=== PATIENT | female | born 1995 | race Two or more races ===

== ENCOUNTER 2024-09-24 10:30 | Outpatient (AMB) | payer MEDICAID, SELFPAY ==
--- NOTE | 2024-09-24 10:30 | AMB.OBINITIA ---
Vital Signs 09/24/24 10:39 Height 1.63 m Height Method Stated Weight 76.884 kg Weight Measurement Method Standing Scale BMI 29.0 BP 103/65 Blood Pressure Source Automatic Cuff Blood Pressure Location Left Upper Arm Position Sitting Respiration 16 Pulse 101 H Pulse Source Monitor Temp 97.2 F Temp Source Oral Pulse Oximetry (%) 99 Oxygen Delivery Method Room Air Allergies/Home Meds Allergies & Medications Allergies ibuprofen Allergy (Intermediate, Verified 09/24/24 10:41) Swelling of Lip/Tongue/Throat Medication Reconciliation Vitamin * 1 tab PO QDAY #0 tabs 04/03/14 [History Confirmed 09/24/24] Intake Visit Data Collection New Patient or Established: New Patient not seen in past 3 years at [facility] (considered New) Reason for Visit:: OB Check Seen by Clinical Staff ONLY (RN/MA): No Blind Cleaner Required: No Do You Feel Safe at Home: Yes Authorities Contacted: N/A PCP or OBGYN visit in last 3 months: No Hx Now: Yes Are you currently on any form of Control: No Pain Present Currently: No Pain Scale Used: Yousif-Weiner/Numerical Pain scale:: 0 Smoking Status Smoking Status: Never smoker Questionnaires Covid-19 Vaccine Questionnaire Has patient been vacinated for Covid-19 Have you been vacinated for Covid-19: Yes PHQ-9 PHQ-2 Over the last 2 weeks, how often have you been bothered by any of the following problems? 1. Little interest or pleasure in doing things: not at all 2. Feeling down, depressed, or hopeless: not at all Total score: 0 PHQ-9 3. Trouble falling or staying asleep, or sleeping too much: Not at all 4. Feeling tired or having little energy: Not at all 5. Poor appetite or overeating: Not at all 6. Feeling bad about yourself - or that you are a failure or have let yourself or your family down: Not at all 7. Trouble concentrating on things, such as reading the newspaper or watching television: Not at all 8. Moving or speaking so slowly that other people could have noticed? - Or the opposite - being so fidgety or restless that you have been moving around a lot more than usual: not at all 9. Thoughts that you would be better off or of hurting yourself in some way: Not at all Total score: 0 If you checked off any problems, how difficult have these problems made it for you to do your work, take care of things at home, or get along with other people?: not difficult at all Source: Developed by Drs. Eddie Hansen, Anai Li, Bob Gomez and colleagues, with an educational yunior from [employer]. Depression screen completed yes Social History Living Situation History Marital Status: Single Lives With: Family Housing: House Tobacco History Smoking Status: Never smoker Second Hand Smoke Exposure: No Alcohol History Alcohol Intake: Never Domestic Abuse History Do You Feel Safe at Home: Yes Past Medical History Past Medical History Have you ever been diagnosed with any of the following: Cardiology Problems Congestive Heart Failure: No Respiratory Problems Chronic Obstructive Pulmonary Disease (COPD): No Genital/Urinary Problems Renal Disease: No Reproductive Problems Previous Pregnancies: Yes Endocrine Problems Diabetes Mellitus Type 1: No Diabetes Mellitus Type 2: No Other Problems Hospitalization: Yes (previous ) Anesthesia Reactions: No Clostridium Difficile: No Cancer: No History of Present Illness HPI Narrative The patient presents for her first visit. Her last menstrual period was on May 15. She reports having had an initial test and seeing a health educator once. The patient has had an informal ultrasound outside of the medical setting. She denies any C-sections and reports a history of vaginal delivery. The patient mentions experiencing gestational diabetes during her second . She reports experiencing nausea and vomiting, which is now improving. The patient also complains of allergies during this time of year, for which she typically uses cetirizine. No CTX/LOF/VB, reports good FM+ OB Initial Visit Menstrual History Menstrual reliability: definite Flow: normal Menstrual regularity: regular Monthly: Yes Age at menarche: 10 On control pills at conception: No Date of positive home test: 06/14/24 OB History : 3 Para: 2 Hx # Pregnancies: 0 Hx Total # of Abortions (Spontaneous & Elective): 0 # of Living Children: 2 Delivery History 1st : Child's name: ENIO date: 01/25/21 sex: female Delivery type: vaginal History of depression before or after : No 2nd : Child's name: SEBASTION sex: male Delivery type: vaginal History of depression before or after : No Infection History & Risk Evaluation History of STDs: none HIV risk evaluation: low risk Hepatitis B risk evaluation: low risk Patient or partner has history of Genital Herpes: No Varicella/chicken pox status: immunized Genetic Screening & History Genetic Screening/Teratology Counseling - Includes patient, baby's father, or anyone in either family with: 1. Patient's age 35 years or older as of estimated date of delivery: No 2. Thalassemia (Upper Sorbian, Romansh, Mediterranean, or Background); MCV less than 80: No 3. Neural Tube Defect (Meningomyelocele, Spina Bifida, or Anencephaly): No 4. Congenital Heart Defect: No 5. Down Syndrome: No 6. Kamar-Sachs (Ashkenazi Mandaen, Cajun, Citizen Of [place]): No 7. Benigno Disease (Ashkenazi Mandaen): No 8. Familial Dysautonomia (Ashkenazi Mandaen): No 9. Sickle Cell Disease or Trait (): No 10. Hemophilia or other blood disorders: No 11. Muscular Dystrophy: No 12. Cystic Fibrosis: No 13. Dewey's Chorea: No 14. Mental Retardation/Autism: No 15. Other inherited genetic or chromosomal disorder: No 16. Maternal Metabolic Disorder (EG,TYPE 1 Diabetes, PKU): No 17. Patient or baby's father had a child with defects not listed above: No 18. Recurrent loss or a stillbirth: No 19. Medications (including supplements, vitamins, herbs or otc drugs)/illicit/recreational drugs/alcohol since last menstrual period: No 20. Any other: No Infection History 1. Live with someone with TB or exposed to TB: No 2. Rash or viral illness since last menstrual period: No 3. Hepatitis B,C: No Other (see comments) Source: [employer] [place] [employer] Review of Systems Review of Systems Systems Reviewed: All systems reviewed, normal except as documented Exam General Limitations: no limitations General Appearance: alert, in no apparent distress, comfortable, cooperative, healthy appearing, well developed and well groomed Head Head exam: atraumatic, normocephalic and normal inspection Neck Neck exam: Present normal inspection, full ROM and trachea midline Chest Chest inspection: Present normal inspection and symmetric chest wall rise Abdominal Abdominal exam: Present soft and normal bowel sounds Extremities Extremities exam: Present normal inspection and full ROM Back Back exam: Present normal inspection and full ROM Psych Psychiatric exam: Present normal affect and normal mood Skin Skin exam: Present warm, dry, intact and normal color Assessment & Plan Diagnosis / Problem List (1) Supervision of high risk , unspecified, second trimester: Status: Acute Plan: Patient is a at 18 weeks 2 days gestation based on ultrasound measurements. Last menstrual period was May 15. Patient has a history of gestational diabetes in her previous . Initial labs have been ordered. Patient reports improvement in nausea and vomiting symptoms. - Genetic testing for Down syndrome screening (with gender results hidden if desired) - Referral to [facility] for second-trimester ultrasound between 20-24 weeks - Follow-up appointment scheduled Allergies Patient reports experiencing allergies during . - Recommended [id number] non-drowsy antihistamines (loratadine or cetirizine) (2) Ventral hernia without obstruction or gangrene: Status: Acute Plan: Small Hernia Patient has a small hernia, likely umbilical, that becomes more prominent during due to uterine expansion. It is expected to resolve post-. - Post- ultrasound of hernia area - Consult with Dr. Rolon after delivery Additional Assessment Pt Education Educated the patient on labor signs, including regular contractions, lower back pain, and changes in vaginal discharge. Advised avoiding heavy lifting and getting adequate rest. Instructed to contact the office immediately if any signs occur. Discussed the importance of a balanced diet rich in folic acid, iron, and calcium, and provided a list of recommended and to-avoid foods. Emphasized avoiding high-sugar foods to reduce gestational diabetes risk. Encouraged hydration and frequent, small meals for energy. Additional Plan Follow Up: 2 Weeks Office Procedures OB Clinic LOC & Office Proc's Nursing/Assessment Patient Status: Initial/New Patient OB Clinic Nursing Assessment: BP Monitoring, Medication Reconciliation, Update PMH in EMR and Vital Signs OB Clinic Coordination of Care: Consent,records obtained, informed consent, Education Simp Pt/Fam, Lab and Imaging orders and Staff clarify orders New Patient Charge New Patient Point Assignment: [id number] New Patient Point Charge: MANAGER [address]IG[address] Level 3 ([id number])
[2024-09-24 10:39] VITALS: BP 103/65; PULSE 101; RESP 16; TEMP 36.2; O2SAT 99; BMI 29.0
== END 2024-09-24 10:59 | disposition home or self-care (01) ==
LOC: HODSOBC 10:30
PROVIDERS: PCP Obstetrics & Gynecology; Referring Provider Obstetrics & Gynecology; Supervising Provider Obstetrics & Gynecology; Visit Provider Obstetrics & Gynecology
DX: O09.92 Supervision of high risk pregnancy, unspecified, second trimester (principal); O99.612 Diseases of the digestive system complicating pregnancy, second trimester; K43.9 Ventral hernia without obstruction or gangrene; Z3A.18 18 weeks gestation of pregnancy; Z86.32 Personal history of gestational diabetes
CPT/HCPCS: 99203; G0463

== ENCOUNTER 2024-10-28 09:55 | Outpatient (AMB) | payer MEDICAID, SELFPAY ==
[2024-10-28 10:05] VITALS: BP 122/73; PULSE 92; RESP 18; TEMP 36.8; O2SAT 99; BMI 29.6
--- NOTE | 2024-10-28 10:05 | OBCLNT_ITS ---
Vital Signs 10/28/24 10:05 Height 1.63 m Height Method Stated Weight 78.642 kg Weight Measurement Method Standing Scale BMI 29.6 BP 122/73 Blood Pressure Source Automatic Cuff Blood Pressure Location Left Upper Arm Position Sitting Respiration 18 Pulse 92 Pulse Source Monitor Temp 98.2 F Temp Source Oral Pulse Oximetry (%) 99 Oxygen Delivery Method Room Air Allergies/Home Meds Allergies & Medications Allergies ibuprofen Allergy (Intermediate, Verified 10/28/24 10:06) Swelling of Lip/Tongue/Throat Medication Reconciliation Vitamin * 1 tab PO QDAY #0 tabs 04/03/14 [History Confirmed 10/28/24] Intake Visit Data Collection New Patient or Established: Established Patient (seen at [facility] within 3 years) Reason for Visit:: OBC Seen by Clinical Staff ONLY (RN/MA): No Electro Mechanical Designer Required: No Do You Feel Safe at Home: Yes Authorities Contacted: N/A PCP or OBGYN visit in last 3 months: Yes Date of Last PCP or OBGYN visit: 09/24/24 Hx Now: Yes Are you currently on any form of Control: No Pain Present Currently: No Pain Scale Used: Yousif-Weiner/Numerical Pain scale:: 0 Smoking Status Smoking Status: Never smoker Questionnaires Covid-19 Vaccine Questionnaire Has patient been vacinated for Covid-19 Have you been vacinated for Covid-19: Yes PHQ-9 PHQ-2 Over the last 2 weeks, how often have you been bothered by any of the following problems? 1. Little interest or pleasure in doing things: not at all 2. Feeling down, depressed, or hopeless: not at all Total score: 0 PHQ-9 3. Trouble falling or staying asleep, or sleeping too much: Not at all 4. Feeling tired or having little energy: Not at all 5. Poor appetite or overeating: Not at all 6. Feeling bad about yourself - or that you are a failure or have let yourself or your family down: Not at all 7. Trouble concentrating on things, such as reading the newspaper or watching television: Not at all 8. Moving or speaking so slowly that other people could have noticed? - Or the opposite - being so fidgety or restless that you have been moving around a lot more than usual: not at all 9. Thoughts that you would be better off or of hurting yourself in some way: Not at all Total score: 0 If you checked off any problems, how difficult have these problems made it for you to do your work, take care of things at home, or get along with other people?: not difficult at all Source: Developed by Drs. Eddie Hansen, Anai Li, Bob Gomez and colleagues, with an educational yunior from [employer]. Depression screen completed yes 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 at Home: Yes Past Medical History Past Medical History Have you ever been diagnosed with any of the following: Cardiology Problems Congestive Heart Failure: No Respiratory Problems Chronic Obstructive Pulmonary Disease (COPD): No Genital/Urinary Problems Renal Disease: No Reproductive Problems Previous Pregnancies: Yes Endocrine Problems Diabetes Mellitus Type 1: No Diabetes Mellitus Type 2: No Other Problems Hospitalization: Yes (previous ) Anesthesia Reactions: No Clostridium Difficile: No Cancer: No History of Present Illness HPI Narrative - Brooklyn Alegre is a patient presenting for a routine follow- up visit. - Patient reports no current issues: - Denies any leakage - States the baby is active - Past medical history significant for gestational diabetes in a previous - Upcoming care: - Scheduled for an ultrasound in November (later than ideal due to booking constraints) - Will undergo a 2-hour glucose tolerance test due to history of gestational diabetes - Patient instructed to come fasting for the test - Recent tests: - AFP (alpha-fetoprotein) test was performed since the last visit No contractions/ LOF/VB, reports good FM No MARTINEZ/VC/RUQ/Epig pain Visit OB Visit Log OB Flowsheet Initial Weight: Not Recorded Date -?-?-?-?-?-?-?-?-?-?-?-?- EGA Weight Edema CTX Effacement BP Fundal ht Pres Dilation Effacement Station Visit Note Alb Glu FHR Mov 10/28/24 -?-?-?-?-?-?-?-?-?-?-?-?- 23w 0d 78.642 kg 122/73 Tasha Alegre, patient in 2nd trimester, presents for routine follow-up. No CTX/LOF/VB. Reports good FM. No MARTINEZ/VS , Epig/RUQ pain. History of gestational diabetes in prior . No current issues reported. AFP drawn; results pending. Assessment & Plan: Routine care in 2nd trimester, history of GDM. Order 2-hour GTT; patient instructed to come fasting Schedule ultrasound before 28w (currentl y set for November due to availability) Follow-up in 4 weeks Reviewed signs of labor and healthy practices 150 active RAY Calculator Estimated Delivery Date Method Current WG Current Estimate 02/24/25 Ultrasound #1 23w 1d Exam General General Appearance: alert, in no apparent distress and healthy appearing Head Head exam: atraumatic Neck Neck exam: Present normal inspection and trachea midline Chest Chest inspection: Present normal inspection and symmetric chest wall rise External exam: Present normal external exam; Absent tenderness Neuro Neurological exam: Present oriented X3 Psych Psychiatric exam: Present normal affect and normal mood Assessment & Plan Diagnosis / Problem List (1) Ventral hernia without obstruction or gangrene: Status: Acute (2) Supervision of high risk , unspecified, second trimester: Status: Acute (3) History of anemia: Status: Acute Plan Problem List - - History of gestational diabetes Assessment - Patient is in 2nd trimester of - History of gestational diabetes - AFP test results pending - All other labs reported as good - Fetus is active with no reported issues Plan - Perform 2-hour glucose tolerance test (patient to come fasting) - Schedule ultrasound before 28 weeks gestation - Follow up in 4 weeks Educated the patient on labor signs, including regular contractions, lower back pain, and changes in vaginal discharge. Advised avoiding heavy lifting and getting adequate rest. Instructed to contact the office immediately if any signs occur. Discussed the importance of a balanced diet rich in folic acid, iron, and calcium, and provided a list of recommended and to-avoid foods. Emphasized avoiding high-sugar foods to reduce gestational diabetes risk. Encouraged hydration and frequent, small meals for energy.. Office Procedures OB Clinic LOC & Office Proc's Nursing/Assessment Patient Status: Established Patient OB Clinic Nursing Assessment: BP Monitoring, Medication Reconciliation, Update PMH in EMR and Vital Signs OB Clinic Coordination of Care: Consent,records obtained, informed consent, Education Simp Pt/Fam and Results/Orders obtained Special Needs: Heart tones Established Patient Charge Established Patient Point Assignment: 100 Established Patient Point Charge: EP Level 3 (80-115)
== END 2024-10-28 10:34 | disposition home or self-care (01) ==
LOC: HODSOBC 09:55
PROVIDERS: PCP Obstetrics & Gynecology; Referring Provider Obstetrics & Gynecology; Supervising Provider Obstetrics & Gynecology; Visit Provider Obstetrics & Gynecology
DX: O09.292 Supervision of pregnancy with other poor reproductive or obstetric history, second trimester (principal); Z3A.23 23 weeks gestation of pregnancy; O09.892 Supervision of other high risk pregnancies, second trimester; O99.612 Diseases of the digestive system complicating pregnancy, second trimester; K43.9 Ventral hernia without obstruction or gangrene; Z86.32 Personal history of gestational diabetes; Z87.59 Personal history of other complications of pregnancy, childbirth and the puerperium; Z88.6 Allergy status to analgesic agent
CPT/HCPCS: 99213; G0463

== ENCOUNTER 2024-11-26 15:32 | Outpatient (AMB) | payer MEDICAID, SELFPAY ==
[2024-11-26 15:40] VITALS: BP 118/82; PULSE 106; RESP 18; TEMP 36.2; O2SAT 98; BMI 29.7
--- NOTE | 2024-11-26 15:40 | OBCLNT_ITS ---
Vital Signs 11/26/24 15:40 Height 1.63 m Height Method Stated Weight 79.152 kg Weight Measurement Method Standing Scale BMI 29.7 BP 118/82 Blood Pressure Source Automatic Cuff Blood Pressure Location Left Upper Arm Position Sitting Respiration 18 Pulse 106 H Pulse Source Monitor Temp 97.2 F Temp Source Oral Pulse Oximetry (%) 98 Oxygen Delivery Method Room Air Allergies/Home Meds Allergies & Medications Allergies ibuprofen Allergy (Intermediate, Verified 11/26/24 15:45) Swelling of Lip/Tongue/Throat Medication Reconciliation Vitamin * 1 tab PO QDAY #0 tabs 04/03/14 [History Confirmed 11/26/24] blood sugar diagnostic (Blood Glucose Test strips) #10 ea 11/26/24 [Rx Confirmed 11/26/24] blood-glucose meter #1 ea 11/26/24 [Rx Confirmed 11/26/24] lancets #100 ea 11/26/24 [Rx Confirmed 11/26/24] Intake Visit Data Collection New Patient or Established: Established Patient (seen at [facility] within 3 years) Reason for Visit:: - Routine visit at 27 weeks and 1 day gestation - Abnormal 2-hour glucose tolerance test results - Feeling mostly tired most of the days Seen by Clinical Staff ONLY (RN/MA): No Health Education Specialist Required: No Do You Feel Safe at Home: Yes Authorities Contacted: N/A PCP or OBGYN visit in last 3 months: Yes Date of Last PCP or OBGYN visit: 10/28/24 Hx Now: Yes Are you currently on any form of Control: No Pain Present Currently: No Pain Scale Used: Yousif-Weiner/Numerical Pain scale:: 0 Smoking Status Smoking Status: Never smoker Questionnaires Covid-19 Vaccine Questionnaire Has patient been vacinated for Covid-19 Have you been vacinated for Covid-19: Yes PHQ-9 PHQ-2 Over the last 2 weeks, how often have you been bothered by any of the following problems? 1. Little interest or pleasure in doing things: not at all 2. Feeling down, depressed, or hopeless: not at all Total score: 0 PHQ-9 3. Trouble falling or staying asleep, or sleeping too much: Not at all 4. Feeling tired or having little energy: Not at all 5. Poor appetite or overeating: Not at all 6. Feeling bad about yourself - or that you are a failure or have let yourself or your family down: Not at all 7. Trouble concentrating on things, such as reading the newspaper or watching television: Not at all 8. Moving or speaking so slowly that other people could have noticed? - Or the opposite - being so fidgety or restless that you have been moving around a lot more than usual: not at all 9. Thoughts that you would be better off or of hurting yourself in some way: Not at all Total score: 0 If you checked off any problems, how difficult have these problems made it for you to do your work, take care of things at home, or get along with other people?: not difficult at all Source: Developed by Drs. Eddie Hansen, Anai Li, Bob Gomez and colleagues, with an educational yunior from [employer]. 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 - Patient has an abnormal 2-hour glucose tolerance test: - Fastin-3 - 1 hour: 173 - 2 hour: 162 - Patient reports feeling mostly tired most days. - movement is present and active. No contractions/ LOF/VB, reports good FM No MARTINEZ/VC/RUQ/Epig pain Care OB Visit Log OB Flowsheet Initial Weight: Not Recorded Date -?-?-?-?-?-?-?-?-?-?-?-?- EGA Weight BP Alb Glu CTX Pres Fundal ht FHR Mov Dilation Station Effacement Hx Notes Visit Note 10/28/24 -?-?-?-?-?-?-?-?-?-?-?-?- 23w 0d 78.642 kg 122/73 150 active Brooklyn Alegre, patient in 2nd trimester, presents for routine follow-up. No CTX/LOF/VB. Reports good FM. No MARTINEZ/VS , Epig/RUQ pain. History of gestational diabetes in prior . No current issues reported. AFP drawn; results pending. Assessment & Plan: Routine care in 2nd trimester, history of GDM. Order 2-hour GTT; patient instructed to come fasting Schedule ultrasound before 28w (currentl y set for November due to availability) Follow-up in 4 weeks Reviewed signs of labor and healthy practi archie 11/26/24 -?-?-?-?-?-?-?-?-?-?-?-?- 27w 1d 79.152 kg 118/82 at 27 weeks and 1 day gestation presents for routine care. Patient was recently diagnosed with gestational diabetes mellitus based on abnormal 2-hour glucose tolerance test (Fasting 90, 1hr 173, 2hr 162). She reports feeling tired most days. movement is re ported as active. Denies contractions, LOF, VB, headache, visual changes, or epigastric pain. Plan: Problem List: Gestational diabetes maurice zaragoza, 27w1d, anemia of . Glucometer prescribed and sent to [facility]. P atient instructed to check fasting glucose in the morning and 1 hour postprandial after each meal, logging values daily for one week and submitting for review. Advised to avoid sweet foods and refined carbohydrates including white rice and flour tortillas. Monitor for anemia; follow up in 4 weeks. Routine counseling provided. RAY Calculator Estimated Delivery Date Method Current WG Current Estimate 02/24/25 Ultrasound #1 27w 1d Results Objective Laboratory: - 2-hour glucose tolerance test: - Fastin mg/dL - 1 hour: 173 mg/dL - 2 hour: 162 mg/dL Exam General General Appearance: alert, in no apparent distress and healthy appearing Head Head exam: atraumatic Neck Neck exam: Present normal inspection and trachea midline Chest Chest inspection: Present normal inspection and symmetric chest wall rise External exam: Present normal external exam; Absent tenderness Neuro Neurological exam: Present oriented X3 Psych Psychiatric exam: Present normal affect and normal mood Office Procedures OB Clinic LOC & Office Proc's Nursing/Assessment Patient Status: Established Patient OB Clinic Nursing Assessment: Medication Reconciliation, Update PMH in EMR and Vital Signs OB Clinic Coordination of Care: Education Complex Pt/Fam, Consent,records obtained, informed consent and Lab and Imaging orders Special Needs: Heart tones Established Patient Charge Established Patient Point Assignment: 100 Established Patient Point Charge: EP Level 3 (80-115) Assessment & Plan Diagnosis / Problem List (1) Gestational diabetes: Status: Acute Plan Problem List - Gestational diabetes mellitus - , third trimester - Anemia of Assessment - Gestational diabetes mellitus (GDM) diagnosed by abnormal 2-hour glucose tolerance test: - Fastin-3 mg/dL (elevated) - 1 hour: 173 mg/dL - 2 hour: 162 mg/dL (elevated) - 3, para 2 at 27 weeks and 1 day gestation - Fatigue reported by patient - Possible anemia in third trimester Plan - Glucometer prescription sent to [facility] - Patient to record blood glucose logs for one week and drop off for review - Check fasting glucose upon waking, then 1 hour after breakfast, lunch, and dinner - Follow-up visit scheduled in 4 weeks - Dietary recommendations: avoid sweet foods and white carbohydrates (e.g., white rice, flour tortillas) - Monitor for potential anemia in third trimester Educated the patient on labor signs, including regular contractions, lower back pain, and changes in vaginal discharge. Advised avoiding heavy lifting and getting adequate rest. Instructed to contact the office immediately if any signs occur. Discussed the importance of a balanced diet rich in folic acid, iron, and calcium, and provided a list of recommended and to-avoid foods. Emphasized avoiding high-sugar foods to reduce gestational diabetes risk. Encouraged hydration and frequent, small meals for energy..
== END 2024-11-26 16:13 | disposition home or self-care (01) ==
LOC: HODSOBC 15:32
PROVIDERS: PCP Obstetrics & Gynecology; Referring Provider Obstetrics & Gynecology; Supervising Provider Obstetrics & Gynecology; Visit Provider Obstetrics & Gynecology
DX: O09.892 Supervision of other high risk pregnancies, second trimester (principal); Z3A.27 27 weeks gestation of pregnancy; O24.419 Gestational diabetes mellitus in pregnancy, unspecified control; O99.012 Anemia complicating pregnancy, second trimester
CPT/HCPCS: 99213; G0463

== ENCOUNTER 2024-12-24 13:00 | Outpatient (AMB) | payer MEDICAID, SELFPAY ==
--- NOTE | 2024-12-24 13:04 | AMB.OBVISIT ---
Vital Signs 12/24/24 13:05 Height 1.63 m Height Method Measured Weight 81.703 kg Weight Measurement Method Standing Scale BMI 30.9 BP 105/66 Blood Pressure Source Automatic Cuff Blood Pressure Location Right Upper Arm Position Sitting Respiration 17 Pulse 84 Pulse Source Monitor Temp 97.8 F Temp Source Temporal Artery Scan Pulse Oximetry (%) 98 Oxygen Delivery Method Room Air Allergies/Home Meds Allergies & Medications Allergies ibuprofen Allergy (Intermediate, Verified 12/24/24 13:05) Swelling of Lip/Tongue/Throat Medication Reconciliation Vitamin * 1 tab PO QDAY #0 tabs 04/03/14 [History Confirmed 12/24/24] blood sugar diagnostic (Blood Glucose Test strips) #10 ea 11/26/24 [Rx Confirmed 12/24/24] blood-glucose meter #1 ea 11/26/24 [Rx Confirmed 12/24/24] lancets #100 ea 11/26/24 [Rx Confirmed 12/24/24] metformin 500 mg tablet 500 mg PO BID 30 days #60 tabs 12/24/24 [Rx] Intake Visit Data Collection New Patient or Established: Established Patient (seen at [facility] within 3 years) Reason for Visit:: OBC Seen by Clinical Staff ONLY (RN/MA): No Electrical Assembly 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 1. Little interest or pleasure in doing things: not at all 2. Feeling down, depressed, or hopeless: not at all Total score: 0 PHQ-9 3. Trouble falling or staying asleep, or sleeping too much: Not at all 4. Feeling tired or having little energy: Not at all 5. Poor appetite or overeating: Not at all 6. Feeling bad about yourself - or that you are a failure or have let yourself or your family down: Not at all 7. Trouble concentrating on things, such as reading the newspaper or watching television: Not at all 8. Moving or speaking so slowly that other people could have noticed? - Or the opposite - being so fidgety or restless that you have been moving around a lot more than usual: not at all 9. Thoughts that you would be better off or of hurting yourself in some way: Not at all Total score: 0 If you checked off any problems, how difficult have these problems made it for you to do your work, take care of things at home, or get along with other people?: not difficult at all Source: Developed by Drs. Eddie Hansen, Anai Li, Bob Gomez and colleagues, with an educational yunior from [employer]. 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 No contractions, LOF, VB and reports good FM. Denies MARTINEZ, VC, and epigastric pain. - Brooklyn Alegre is a 29-year-old female, , at 31 weeks and 1 day gestation presenting for routine care. - Newly diagnosed with gestational diabetes mellitus (GDM) - Patient brought blood glucose logs showing elevated postprandial readings: - After lunch: up to 163 mg/dL - After dinner: up to 181 mg/dL - After breakfast: up to 195 mg/dL - No history of diabetes in past pregnancies - Reports active movement - Denies contractions Care OB Visit Log OB Flowsheet Initial Weight: Not Recorded Date <del>?</del> EGA Weight BP Alb Glu CTX Pres Fundal ht FHR Mov Dilation Station Effacement Hx Notes Visit Note 10/28/24 <del>?</del> 23w 0d 78.642 kg 122/73 150 active Brooklyn Alegre, patient in 2nd trimester, presents for routine follow-up. No CTX/LOF/VB. Reports good FM. No MARTINEZ/VS, Epig/RUQ pain. History of gestational diabetes in prior . No current issues reported. AFP drawn; results pending. Assessment & Plan: Routine care in 2nd trimester, history of GDM. Order 2-hour GTT; patient instructed to come fasting Schedule ultrasound before 28w (currently set for November due to availability) Follow-up in 4 weeks Reviewed signs of labor and healthy practices 11/26/24 <del>?</del> 27w 1d 79.152 kg 118/82 at 27 weeks and 1 day gestation presents for routine care. Patient was recently diagnosed with gestational diabetes mellitus based on abnormal 2-hour glucose tolerance test (Fasting 90, 1hr 173, 2hr 162). She reports feeling tired most days. movement is reported as active. Denies contractions, LOF, VB, headache, visual changes, or epigastric pain. Plan: Problem List: Gestational diabetes mellitus, 27w1d, anemia of . Glucometer prescribed and sent to [facility]. Patient instructed to check fasting glucose in the morning and 1 hour postprandial after each meal, logging values daily for one week and submitting for review. Advised to avoid sweet foods and refined carbohydrates including white rice and flour tortillas. Monitor for anemia; follow up in 4 weeks. Routine counseling provided. 12/24/24 <del>?</del> 31w 1d 81.703 kg 105/66 MFM Ultrasound Report (12.14.2024): - Estimated Weight: 16.01 grams (3 pounds 8 ounces) - Growth Percentile: 64th percentile - Amniotic Fluid Index (JENNIFER): 14.23 Reports good movement, no contractions. Newly diagnosed GDM, glucose logs show postprandial spikes up to 195. No GDM in prior pregnancies. FHR 139?140. MFM US 12/14: EFW 3lb 8oz (64%), JENNIFER 14.23. Plan: Start metformin 500mg BID, strict diet changes (low-carb, high-protein, no sweet drinks or high-sugar fruits), monitor sugars for 7 days, escalate to insulin if >160 persists, weekly monitoring pending auth, follow up with glucose logs in 1 week, continue scheduled growth ultrasounds. RAY Calculator Estimated Delivery Date Method Current WG Current Estimate 02/24/25 Ultrasound #1 31w 2d Exam General General Appearance: alert, in no apparent distress and healthy appearing Head Head exam: atraumatic Neck Neck exam: Present normal inspection and trachea midline Chest Chest inspection: Present normal inspection and symmetric chest wall rise External exam: Present normal external exam; Absent tenderness Neuro Neurological exam: Present oriented X3 Psych Psychiatric exam: Present normal affect and normal mood Office Procedures OB Clinic LOC & Office Proc's Nursing/Assessment Patient Status: Established Patient OB Clinic Nursing Assessment: Medication Reconciliation, Update PMH in EMR and Vital Signs OB Clinic Coordination of Care: Education Complex Pt/Fam, Consent,records obtained, informed consent, Results/Orders obtained and Staff clarify orders Special Needs: Heart tones Established Patient Charge Established Patient Point Assignment: 100 Established Patient Point Charge: EP Level 3 (80-115) Assessment & Plan Diagnosis / Problem List (1) Gestational diabetes: Status: Acute Plan Problem List - Gestational diabetes mellitus - , 31 weeks and 1 day Assessment 29-year-old at 31 weeks 1 day gestation presenting for routine care with newly diagnosed gestational diabetes mellitus (GDM). Blood glucose logs reveal elevated postprandial readings: 195 mg/dL after breakfast, 181 mg/dL after dinner, 163 mg/dL after lunch, and additional elevations of 157 mg/dL and 153 mg/dL. heart rate noted to be 139-140 bpm, which is within normal range. Patient reports active movement and denies contractions. [facility] Ultrasound Report: - Date: 12.14.2024 - Estimated Weight: 16.01 grams (3 pounds 8 ounces) - Growth Percentile: 64th percentile - Amniotic Fluid Index (JENNIFER): 14.23 Plan - Start metformin 500mg twice daily with breakfast and dinner - Implement strict diet modifications: - Reduce simple carbohydrates (white flour, rice, corn, sweet foods/drinks) - Avoid high-sugar fruits (jennifer, pineapple) - Increase protein, salads, and low-sugar fruits - Berries are acceptable - Monitor blood glucose levels for 7 days - If blood glucose remains >160, consider switching to insulin - Set up weekly monitoring on labor and delivery unit (pending insurance approval) - Follow up in one week with blood glucose logs - Continue with scheduled growth ultrasounds at 32-33 weeks and 34-35 weeks 1. Progress Reviewed gestational age, growth, and heart rate. Planned frequent visits (every 2 weeks until 36 weeks, then weekly). 2. Instructed patient to monitor movements and report decreases immediately. 3. Testing Counseled on routine third-trimester labs per guidelines. Discussed potential need for ultrasound or monitoring based on risk factors. 4. Preeclampsia Precaution Educated on preeclampsia signs: severe headache, vision changes, right upper quadrant pain, sudden swelling. Advised urgent reporting of symptoms and discussed blood pressure monitoring if high risk. 5. Labor Precautions Reviewed labor signs: regular contractions, pelvic pressure, back pain, bleeding, or fluid leakage. Instructed to seek immediate care for these symptoms. 6. Lifestyle and Delivery Preparation Reinforced vitamins, nutrition, and safe activity. Discussed plan, pain management, and . Advised on labor preparation (e.g., hospital bag) and expectations. 7. Psychosocial Support Assessed emotional well-being and offered resources for mental health or parenting support.
[2024-12-24 13:05] VITALS: BP 105/66; PULSE 84; RESP 17; TEMP 36.6; O2SAT 98; BMI 30.9
== END 2024-12-24 13:44 | disposition home or self-care (01) ==
LOC: HODSOBC 13:00
PROVIDERS: PCP Obstetrics & Gynecology; Referring Provider Obstetrics & Gynecology; Supervising Provider Obstetrics & Gynecology; Visit Provider Obstetrics & Gynecology
DX: O09.893 Supervision of other high risk pregnancies, third trimester (principal); O24.415 Gestational diabetes mellitus in pregnancy, controlled by oral hypoglycemic drugs; Z3A.31 31 weeks gestation of pregnancy; Z88.6 Allergy status to analgesic agent
CPT/HCPCS: 99213; G0463

== ENCOUNTER 2024-12-30 13:34 | Outpatient (AMB) | payer MEDICAID, SELFPAY ==
--- NOTE | 2024-12-30 13:43 | OBCLNT_ITS ---
Vital Signs 12/30/24 13:44 Height 1.63 m Height Method Measured Weight 80.002 kg Weight Measurement Method Standing Scale BMI 30.1 BP 102/66 Blood Pressure Source Automatic Cuff Blood Pressure Location Right Upper Arm Position Sitting Respiration 17 Pulse 84 Pulse Source Monitor Temp 97.8 F Temp Source Temporal Artery Scan Pulse Oximetry (%) 84 L Oxygen Delivery Method Room Air Allergies/Home Meds Allergies & Medications Allergies ibuprofen Allergy (Intermediate, Verified 01/20/25 08:29) Swelling of Lip/Tongue/Throat Medication Reconciliation Vitamin * 1 tab PO QDAY #0 tabs 04/03/14 [History Confirmed 01/20/25] blood sugar diagnostic (Blood Glucose Test strips) #10 ea 11/26/24 [Rx Confirmed 01/20/25] blood-glucose meter #1 ea 11/26/24 [Rx Confirmed 01/20/25] lancets #100 ea 11/26/24 [Rx Confirmed 01/20/25] metformin 500 mg tablet 500 mg PO BID 30 days #60 tabs 12/24/24 [Rx Confirmed 01/20/25] Intake Visit Data Collection New Patient or Established: Established Patient (seen at [facility] within 3 years) Reason for Visit:: C Consent obtained for Telemed Visit: No Seen by Clinical Staff ONLY (RN/MA): No Gauge Inspector Required: No Do You Feel Safe at Home: Yes Authorities Contacted: N/A PCP or OBGYN visit in last 3 months: Yes Date of Last PCP or OBGYN visit: 12/24/24 Hx Now: Yes Are you currently on any form of Control: No Pain Present Currently: No Pain Scale Used: Yousif-Weiner/Numerical Pain scale:: 0 Smoking Status Smoking Status: Never smoker Questionnaires Covid-19 Vaccine Questionnaire Has patient been vacinated for Covid-19 Have you been vacinated for Covid-19: No PHQ-9 PHQ-2 Over the last 2 weeks, how often have you been bothered by any of the following problems? 1. Little interest or pleasure in doing things: not at all PHQ-9 8. Moving or speaking so slowly that other people could have noticed? - Or the opposite - being so fidgety or restless that you have been moving around a lot more than usual: not at all Source: Developed by Drs. Eddie Hansen, Anai B.Bob Perera and colleagues, with an educational yunior from [employer]. 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 No CTX/LOF/VB. Reports good FM. No MARTINEZ/VS , Epig/RUQ pain. History of gestational diabetes in prior . No current issues reported. AFP drawn; results pending. Assessment & Plan: Routine care in 2nd trimester, history of GDM. Order 2-hour GTT; patient instructed to come fasting Schedule ultrasound before 28w (currentl y set for November due to availability) Follow-up in 4 weeks Reviewed signs of labor and healthy practi archie 11/26/24 -?-?-?-?-?-?-?-?-?-?-?-?- 27w 1d 79.152 kg 118/82 at 27 weeks and 1 day gestation presents for routine care. Patient was recently diagnosed with gestational diabetes mellitus based on abnormal 2-hour glucose tolerance test (Fasting 90, 1hr 173, 2hr 162). She reports feeling tired most days. movement is reported as active. Denies contractions, LOF, VB, headache, visual changes, or epigastric pain. Plan: Problem List: Gestational diabetes isaiasstephania zaragoza, 27w1d, anemia of . Glucometer prescribed and sent to [facility]. atient instructed to check fasting glucose in the morning and 1 hour postprandial after each meal, logging values daily for one week and submitting for review. Advised to avoid sweet foods and refined carbohydrates including white rice and flour tortillas. Monitor for anemia; follow up in 4 weeks. Routine counseling provided. 12/24/24 -?-?-?-?-?-?-?-?-?-?-?-?- 31w 1d 81.703 kg 105/66 MFM Ultrasound Report (12.14.2024): - Estimated Weight: 16.01 grams (3 pounds 8 ounces) - Growth Percentile: 64th percenti le - Amniotic Fluid Index (JENNIFER): 14.23 Reports good movement, no contractions. Newly diagnosed GDM, glucose logs show postprandial spikes up to 195. No GDM in prior pregnancies. FHR 139?140. MFM US 12/14: EFW 3lb 8oz (64%), JENNIFER 14.23. Plan: Start metformin 500mg BID, strict diet changes (low-carb, high- protein, no sweet drinks or high-sugar fruits), monitor sugars for 7 days, escalate to insulin if >160 persists, weekly monitoring pending auth, foll ow up with glucose logs in 1 week, continue scheduled growth ultrasounds. 12/30/24 -?-?-?-?-?-?-?-?-?-?-?-?- 32w 0d 80.002 kg 102/66 occasional cephalic 32 145 active at 32w with GDM well-controlled on metformin 500 mg BID (breakfast, noon), BG 86?93 fasting and 111?134 postprandial. Plan: Continue metformin and diet; f/u in 2w with culture swab 01/13/25 -?-?-?-?-?-?-?-?-?-?-?-?- 34w 0d 78.698 kg 99/64 occasional cephalic 35 145 active , 34w0d No CTX/LOF/VB, good FM. GDM on metformin with FBG 85?92, PP 108?157 (mostly <130). FHR 145. Undergoing biweekly monitoring (Mon/Edie). Plan: Continue metformin, hospital monitoring biweekly, f/u next week with Thea and week after with Dr. Alonzo, weekly visits from now on, plan induction 38?39w if glycemic control stable, earlier if sugars increase. 01/20/25 -?-?-?-?-?-?-?-?-?-?-?-?- 35w 0d 79.038 kg 99/66 occasional cephalic 35 156 active No CTX/LOF?VB. Fetus is active. Patient reports that blood sugars are at goal. Her fastings are all below 100. And an hour after meals her sugars are below 140. Reports good movement. Patient is compliant with biweekly monitoring. And patient is taking metformin 500 twice daily PLAN: GBS today. Continue metformin as directed. Continue with biweekly NST BPP. Kick count twice a day. Reviewed danger signs and signs symptoms of labor. Return in a week with Dr. Patrica BELL Calculator Estimated Delivery Date Method Current WG Current Estimate 02/24/25 Ultrasound #1 35w 5d Office Procedures OB Clinic LOC & Office Proc's Nursing/Assessment Patient Status: Established Patient OB Clinic Nursing Assessment: Medication Reconciliation, Update PMH in EMR and Vital Signs OB Clinic Coordination of Care: Complex Care and Chronic Disease 1-5, Consent,records obtained, informed consent, 4+ Authorizations needed, Lab and Imaging orders and Results/Orders obtained Special Needs: Heart tones Established Patient Charge Established Patient Point Assignment: 135 Established Patient Point Charge: EP Level 4 (120-155) Assessment & Plan Diagnosis / Problem List (1) Supervision of high risk , unspecified, third trimester: Status: Acute (2) Gestational diabetes: Status: Acute (3) Ventral hernia without obstruction or gangrene: Status: Acute
[2024-12-30 13:44] VITALS: BP 102/66; PULSE 84; RESP 17; TEMP 36.6; O2SAT 84; BMI 30.1
== END 2024-12-30 13:51 | disposition home or self-care (01) ==
LOC: HODSOBC 13:34
PROVIDERS: PCP Obstetrics & Gynecology; Referring Provider Obstetrics & Gynecology; Supervising Provider Obstetrics & Gynecology; Visit Provider Obstetrics & Gynecology
DX: O09.893 Supervision of other high risk pregnancies, third trimester (principal); O24.415 Gestational diabetes mellitus in pregnancy, controlled by oral hypoglycemic drugs; O99.613 Diseases of the digestive system complicating pregnancy, third trimester; K43.9 Ventral hernia without obstruction or gangrene; Z3A.32 32 weeks gestation of pregnancy; Z88.6 Allergy status to analgesic agent
CPT/HCPCS: 99214; G0463

== ENCOUNTER 2025-01-13 10:12 | Outpatient (AMB) | payer MEDICAID, SELFPAY ==
[2025-01-13 10:34] VITALS: BP 99/64; PULSE 77; RESP 17; TEMP 36.4; O2SAT 98; BMI 29.6
--- NOTE | 2025-01-13 10:34 | OBCLNT_ITS ---
Vital Signs 01/13/25 10:34 Height 1.63 m Height Method Measured Weight 78.698 kg Weight Measurement Method Standing Scale BMI 29.6 BP 99/64 Blood Pressure Source Automatic Cuff Blood Pressure Location Right Upper Arm Position Sitting Respiration 17 Pulse 77 Pulse Source Monitor Temp 97.6 F Temp Source Temporal Artery Scan Pulse Oximetry (%) 98 Oxygen Delivery Method Room Air Allergies/Home Meds Allergies & Medications Allergies ibuprofen Allergy (Intermediate, Verified 01/13/25 10:34) Swelling of Lip/Tongue/Throat Medication Reconciliation Vitamin * 1 tab PO QDAY #0 tabs 04/03/14 [History Confirmed 01/13/25] blood sugar diagnostic (Blood Glucose Test strips) #10 ea 11/26/24 [Rx Confirmed 01/13/25] blood-glucose meter #1 ea 11/26/24 [Rx Confirmed 01/13/25] lancets #100 ea 11/26/24 [Rx Confirmed 01/13/25] metformin 500 mg tablet 500 mg PO BID 30 days #60 tabs 12/24/24 [Rx Confirmed 01/13/25] Intake Visit Data Collection New Patient or Established: Established Patient (seen at [facility] within 3 years) Reason for Visit:: [facility] Consent obtained for Telemed Visit: No Seen by Clinical Staff ONLY (RN/MA): No Auto Driver Required: No Do You Feel Safe at Home: Yes Authorities Contacted: N/A PCP or OBGYN visit in last 3 months: Yes Date of Last PCP or OBGYN visit: 01/11/25 Hx Now: Yes Are you currently on any form of Control: No Pain Present Currently: No Pain Scale Used: Yousif-Weiner/Numerical Pain scale:: 0 Smoking Status Smoking Status: Never smoker Questionnaires Covid-19 Vaccine Questionnaire Has patient been vacinated for Covid-19 Have you been vacinated for Covid-19: Yes PHQ-9 PHQ-2 Over the last 2 weeks, how often have you been bothered by any of the following problems? 1. Little interest or pleasure in doing things: not at all PHQ-9 8. Moving or speaking so slowly that other people could have noticed? - Or the opposite - being so fidgety or restless that you have been moving around a lot more than usual: not at all Source: Developed by Drs. Eddie Hansen, Anai B.Bob Perera and colleagues, with an educational yunior from [employer]. 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 No CTX/LOF/VB. Reports good FM. No MARTINEZ/VS , Epig/RUQ pain. History of gestational diabetes in prior . No current issues reported. AFP drawn; results pending. Assessment & Plan: Routine care in 2nd trimester, history of GDM. Order 2-hour GTT; patient instructed to come fasting Schedule ultrasound before 28w (currentl y set for November due to availability) Follow-up in 4 weeks Reviewed signs of labor and healthy practi archie 11/26/24 -?-?-?-?-?-?-?-?-?-?-?-?- 27w 1d 79.152 kg 118/82 at 27 weeks and 1 day gestation presents for routine care. Patient was recently diagnosed with gestational diabetes mellitus based on abnormal 2-hour glucose tolerance test (Fasting 90, 1hr 173, 2hr 162). She reports feeling tired most days. movement is reported as active. Denies contractions, LOF, VB, headache, visual changes, or epigastric pain. Plan: Problem List: Gestational diabetes isaiasstephania zaragoza, 27w1d, anemia of . Glucometer prescribed and sent to [facility]. atient instructed to check fasting glucose in the morning and 1 hour postprandial after each meal, logging values daily for one week and submitting for review. Advised to avoid sweet foods and refined carbohydrates including white rice and flour tortillas. Monitor for anemia; follow up in 4 weeks. Routine counseling provided. 12/24/24 -?-?-?-?-?-?-?-?-?-?-?-?- 31w 1d 81.703 kg 105/66 MFM Ultrasound Report (12.14.2024): - Estimated Weight: 16.01 grams (3 pounds 8 ounces) - Growth Percentile: 64th percenti le - Amniotic Fluid Index (JENNIFER): 14.23 Reports good movement, no contractions. Newly diagnosed GDM, glucose logs show postprandial spikes up to 195. No GDM in prior pregnancies. FHR 139?140. MFM US 12/14: EFW 3lb 8oz (64%), JENNIFER 14.23. Plan: Start metformin 500mg BID, strict diet changes (low-carb, high- protein, no sweet drinks or high-sugar fruits), monitor sugars for 7 days, escalate to insulin if >160 persists, weekly monitoring pending auth, follow up with glucose logs in 1 week, continue scheduled growth ultrasounds. 01/13/25 -?-?-?-?-?-?-?-?-?-?-?-?- 34w 0d 78.698 kg 99/64 occasional cephalic 35 145 active , 34w0d No CTX/LOF/VB, good FM. GDM on metformin with FBG 85?92, PP 108?157 (mostly <130). FHR 145. Undergoing biweekly monitoring (Mon/Edie). Plan: Continue metformin, hospital monitoring biweekly, f/u next week with Thea and week after with Dr. Alonzo, weekly visits from now on, plan induction 38?39w if glycemic control stable, earlier if sugars increase. ARY Calculator Estimated Delivery Date Method Current WG Current Estimate 02/24/25 Ultrasound #1 34w 0d Office Procedures OB Clinic LOC & Office Proc's Nursing/Assessment Patient Status: Established Patient OB Clinic Nursing Assessment: Medication Reconciliation, Update PMH in EMR and Vital Signs OB Clinic Coordination of Care: Complex Care and Chronic Disease 1-5, Education Complex Pt/Fam, Consent,records obtained, informed consent and Education Simp Pt/Fam Special Needs: Heart tones Established Patient Charge Established Patient Point Assignment: 125 Established Patient Point Charge: EP Level 3 (80-115) Assessment & Plan Diagnosis / Problem List (1) Gestational diabetes: Status: Acute (2) Ventral hernia without obstruction or gangrene: Status: Acute (3) Supervision of high risk , unspecified, third trimester: Status: Acute Plan Problem List - Gestational diabetes mellitus - 3 para 2 - , 34 weeks gestation Assessment 3 para 2 at 34 weeks 0 days gestation with gestational diabetes mellitus (GDM) on metformin. Blood glucose monitoring shows fasting levels between 85-92 mg/dL and postprandial levels between 108-157 mg/dL, with the majority below 130 mg/dL. Overall glycemic control is deemed acceptable for metformin management. Patient reports regular movement and denies contractions. heart rate auscultated at 145 bpm. Patient is currently undergoing twice-weekly monitoring at the hospital on Mondays and . Plan - Schedule appointment with Thea next week - Schedule appointment with Dr. Alonzo the following week - Continue twice weekly monitoring at hospital on Mondays and - Plan for induction between 38-39 weeks if blood glucose remains stable, or early 38 weeks if numbers increase - Transition to weekly appointments from now on - Continue current metformin regimen 1. Progress Reviewed gestational age, growth, and heart rate. Planned frequent visits (every 2 weeks until 36 weeks, then weekly). 2. Instructed patient to monitor movements and report decreases immediately. 3. Testing Counseled on routine third-trimester labs per guidelines. Discussed potential need for ultrasound or monitoring based on risk factors. 4. Preeclampsia Precaution Educated on preeclampsia signs: severe headache, vision changes, right upper quadrant pain, sudden swelling. Advised urgent reporting of symptoms and discussed blood pressure monitoring if high risk. 5. Labor Precautions Reviewed labor signs: regular contractions, pelvic pressure, back pain, bleeding, or fluid leakage. Instructed to seek immediate care for these symptoms. 6. Lifestyle and Delivery Preparation Reinforced vitamins, nutrition, and safe activity. Discussed plan, pain management, and . Advised on labor preparation (e.g., hospital bag) and expectations. 7. Psychosocial Support Assessed emotional well-being and offered resources for mental health or parenting support.
== END 2025-01-13 10:46 | disposition home or self-care (01) ==
PROVIDERS: PCP Obstetrics & Gynecology; Referring Provider Obstetrics & Gynecology; Supervising Provider Obstetrics & Gynecology; Visit Provider Obstetrics & Gynecology
DX: O09.893 Supervision of other high risk pregnancies, third trimester (principal); O24.415 Gestational diabetes mellitus in pregnancy, controlled by oral hypoglycemic drugs; O99.613 Diseases of the digestive system complicating pregnancy, third trimester; K43.9 Ventral hernia without obstruction or gangrene; Z3A.34 34 weeks gestation of pregnancy; Z88.6 Allergy status to analgesic agent
CPT/HCPCS: 99213; G0463

== ENCOUNTER 2025-01-20 08:14 | Outpatient (AMB) | payer MEDICAID, SELFPAY ==
[2025-01-20 08:28] VITALS: BP 99/66; PULSE 74; RESP 17; TEMP 36.3; O2SAT 98; BMI 29.7
--- NOTE | 2025-01-20 08:28 | OBCLNT_ITS ---
Vital Signs 01/20/25 08:28 Height 1.63 m Height Method Measured Weight 79.038 kg Weight Measurement Method Standing Scale BMI 29.7 BP 99/66 Blood Pressure Source Automatic Cuff Blood Pressure Location Right Upper Arm Position Sitting Respiration 17 Pulse 74 Pulse Source Monitor Temp 97.3 F Temp Source Temporal Artery Scan Pulse Oximetry (%) 98 Oxygen Delivery Method Room Air Allergies/Home Meds Allergies & Medications Allergies ibuprofen Allergy (Intermediate, Verified 01/20/25 08:29) Swelling of Lip/Tongue/Throat Medication Reconciliation Vitamin * 1 tab PO QDAY #0 tabs 04/03/14 [History Confirmed 01/20/25] blood sugar diagnostic (Blood Glucose Test strips) #10 ea 11/26/24 [Rx Confirmed 01/20/25] blood-glucose meter #1 ea 11/26/24 [Rx Confirmed 01/20/25] lancets #100 ea 11/26/24 [Rx Confirmed 01/20/25] metformin 500 mg tablet 500 mg PO BID 30 days #60 tabs 12/24/24 [Rx Confirmed 01/20/25] Intake Visit Data Collection New Patient or Established: Established Patient (seen at [facility] within 3 years) Reason for Visit:: C Consent obtained for Telemed Visit: No Seen by Clinical Staff ONLY (RN/MA): No Regional Maintenance Manager Required: No Do You Feel Safe at Home: Yes Authorities Contacted: N/A PCP or OBGYN visit in last 3 months: Yes Date of Last PCP or OBGYN visit: 01/18/25 Hx Now: Yes Are you currently on any form of Control: No Pain Present Currently: No Pain Scale Used: Yousif-Weiner/Numerical Pain scale:: 0 Smoking Status Smoking Status: Never smoker Questionnaires Covid-19 Vaccine Questionnaire Has patient been vacinated for Covid-19 Have you been vacinated for Covid-19: No PHQ-9 PHQ-2 Over the last 2 weeks, how often have you been bothered by any of the following problems? 1. Little interest or pleasure in doing things: not at all PHQ-9 8. Moving or speaking so slowly that other people could have noticed? - Or the opposite - being so fidgety or restless that you have been moving around a lot more than usual: not at all Source: Developed by Drs. Eddie Hansen, Anai B.Bob Perera and colleagues, with an educational yunior from [email or web address]. 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 No CTX/LOF/VB. Reports good FM. No MARTINEZ/VS , Epig/RUQ pain. History of gestational diabetes in prior . No current issues reported. AFP drawn; results pending. Assessment & Plan: Routine care in 2nd trimester, history of GDM. Order 2-hour GTT; patient instructed to come fasting Schedule ultrasound before 28w (currentl y set for November due to availability) Follow-up in 4 weeks Reviewed signs of labor and healthy practi archie 11/26/24 -?-?-?-?-?-?-?-?-?-?-?-?- 27w 1d 79.152 kg 118/82 at 27 weeks and 1 day gestation presents for routine care. Patient was recently diagnosed with gestational diabetes mellitus based on abnormal 2-hour glucose tolerance test (Fasting 90, 1hr 173, 2hr 162). She reports feeling tired most days. movement is reported as active. Denies contractions, LOF, VB, headache, visual changes, or epigastric pain. Plan: Problem List: Gestational diabetes isaiasstephania zaragoza, 27w1d, anemia of . Glucometer prescribed and sent to [facility]. atient instructed to check fasting glucose in the morning and 1 hour postprandial after each meal, logging values daily for one week and submitting for review. Advised to avoid sweet foods and refined carbohydrates including white rice and flour tortillas. Monitor for anemia; follow up in 4 weeks. Routine counseling provided. 12/24/24 -?-?-?-?-?-?-?-?-?-?-?-?- 31w 1d 81.703 kg 105/66 MFM Ultrasound Report (12.14.2024): - Estimated Weight: 16.01 grams (3 pounds 8 ounces) - Growth Percentile: 64th percenti le - Amniotic Fluid Index (JENNIFER): 14.23 Reports good movement, no contractions. Newly diagnosed GDM, glucose logs show postprandial spikes up to 195. No GDM in prior pregnancies. FHR 139?140. MFM US 12/14: EFW 3lb 8oz (64%), JENNIFER 14.23. Plan: Start metformin 500mg BID, strict diet changes (low-carb, high- protein, no sweet drinks or high-sugar fruits), monitor sugars for 7 days, escalate to insulin if >160 persists, weekly monitoring pending auth, follow up with glucose logs in 1 week, continue scheduled growth ultrasounds. 01/13/25 -?-?-?-?-?-?-?-?-?-?-?-?- 34w 0d 78.698 kg 99/64 occasional cephalic 35 145 active , 34w0d No CTX/LOF/VB, good FM. GDM on metformin with FBG 85?92, PP 108?157 (mostly <130). FHR 145. Undergoing biweekly monitoring (Mon/Edie). Plan: Continue metformin, hospital monitoring biweekly, f/u next week with Thea and week after with Dr. Alonzo, weekly visits from now on, plan induction 38?39w if glycemic control stable, earlier if sugars increase. 01/20/25 -?-?-?-?-?-?-?-?-?-?-?-?- 35w 0d 79.038 kg 99/66 occasional cephalic 35 156 active No CTX/LOF?VB. Fetus is active. Patient reports that blood sugars are at goal. Her fastings are all below 100. And an hour after meals her sugars are below 140. Reports good movement. Patient is compliant with biweekly monitoring. And patient is taking metformin 500 twice daily PLAN: GBS today. Continue metformin as directed. Continue with biweekly NST BPP. Kick count twice a day. Reviewed danger signs and signs symptoms of labor. Return in a week with Dr. Patrica BELL Calculator Estimated Delivery Date Method Current WG Current Estimate 02/24/25 Ultrasound #1 35w 0d Office Procedures OB Clinic LOC & Office Proc's Nursing/Assessment Patient Status: Established Patient OB Clinic Nursing Assessment: Medication Reconciliation, Update PMH in EMR and Vital Signs OB Clinic Coordination of Care: Complex Care and Chronic Disease 1-5, Consent,records obtained, informed consent, Education Simp Pt/Fam and 4+ Authorizations needed Special Needs: Heart tones Established Patient Charge Established Patient Point Assignment: 130 Established Patient Point Charge: EP Level 4 (120-155) Assessment & Plan Diagnosis / Problem List (1) Supervision of high risk , unspecified, third trimester: Status: Acute (2) Gestational diabetes: Status: Acute Plan Continue NST BPP twice a week. Continue monitoring blood sugars and logging them. Continue GDM diet. Patient will continue metformin 500 twice daily as directed. I reviewed kick count twice daily with patient and I discussed danger signs symptoms and labor precautions. Return in a week with OB Additional Plan Follow Up: 1 Week (obc)
== END 2025-01-20 09:15 | disposition home or self-care (01) ==
PROVIDERS: Supervising Provider Advanced Practice Midwife; Visit Provider Advanced Practice Midwife
DX: O09.893 Supervision of other high risk pregnancies, third trimester (principal); O24.415 Gestational diabetes mellitus in pregnancy, controlled by oral hypoglycemic drugs; Z36.85 Encounter for antenatal screening for Streptococcus B; Z3A.35 35 weeks gestation of pregnancy; Z88.6 Allergy status to analgesic agent
CPT/HCPCS: 99214; G0463

== ENCOUNTER 2025-01-29 10:31 | Outpatient (AMB) | payer MEDICAID, SELFPAY ==
[2025-01-29 10:44] VITALS: BP 100/68; PULSE 67; RESP 17; TEMP 36.7; O2SAT 98; BMI 29.8
--- NOTE | 2025-01-29 10:44 | AMB.OBVISIT ---
Vital Signs 01/29/25 10:44 Height 1.63 m Height Method Stated Weight 79.379 kg Weight Measurement Method Standing Scale BMI 29.8 BP 100/68 Blood Pressure Source Automatic Cuff Blood Pressure Location Right Upper Arm Position Sitting Respiration 17 Pulse 67 Pulse Source Monitor Temp 98.0 F Temp Source Temporal Artery Scan Pulse Oximetry (%) 98 Oxygen Delivery Method Room Air Allergies/Home Meds Allergies & Medications Allergies ibuprofen Allergy (Intermediate, Verified 01/29/25 10:45) Swelling of Lip/Tongue/Throat Medication Reconciliation Vitamin * 1 tab PO QDAY #0 tabs 04/03/14 [History Confirmed 01/29/25] blood sugar diagnostic (Blood Glucose Test strips) #10 ea 11/26/24 [Rx Confirmed 01/29/25] blood-glucose meter #1 ea 11/26/24 [Rx Confirmed 01/29/25] lancets #100 ea 11/26/24 [Rx Confirmed 01/29/25] metformin 500 mg tablet 500 mg PO BID 30 days #60 tabs 12/24/24 [Rx Confirmed 01/29/25] Intake Visit Data Collection New Patient or Established: Established Patient (seen at [facility] within 3 years) Reason for Visit:: OBC 36W2D Seen by Clinical Staff ONLY (RN/MA): No Rib Puller Required: No Do You Feel Safe at Home: Yes Authorities Contacted: N/A PCP or OBGYN visit in last 3 months: Yes Date of Last PCP or OBGYN visit: 01/28/25 Hx Now: Yes Are you currently on any form of Control: No Pain Present Currently: No Pain Scale Used: Yousif-Weiner/Numerical Pain scale:: 0 Smoking Status Smoking Status: Never smoker Questionnaires Covid-19 Vaccine Questionnaire Has patient been vacinated for Covid-19 Have you been vacinated for Covid-19: No PHQ-9 PHQ-2 Over the last 2 weeks, how often have you been bothered by any of the following problems? 1. Little interest or pleasure in doing things: not at all 2. Feeling down, depressed, or hopeless: not at all Total score: 0 PHQ-9 3. Trouble falling or staying asleep, or sleeping too much: Not at all 4. Feeling tired or having little energy: Not at all 5. Poor appetite or overeating: Not at all 6. Feeling bad about yourself - or that you are a failure or have let yourself or your family down: Not at all 7. Trouble concentrating on things, such as reading the newspaper or watching television: Not at all 8. Moving or speaking so slowly that other people could have noticed? - Or the opposite - being so fidgety or restless that you have been moving around a lot more than usual: not at all 9. Thoughts that you would be better off or of hurting yourself in some way: Not at all Total score: 0 If you checked off any problems, how difficult have these problems made it for you to do your work, take care of things at home, or get along with other people?: not difficult at all Source: Developed by Drs. Eddie Hansen, Anai Li, Bob Gomez and colleagues, with an educational yunior from [employer]. 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 No CTX/LOF/VB. Reports good FM. No MARTINEZ/VS, Epig/RUQ pain. History of gestational diabetes in prior . No current issues reported. AFP drawn; results pending. Assessment & Plan: Routine care in 2nd trimester, history of GDM. Order 2-hour GTT; patient instructed to come fasting Schedule ultrasound before 28w (currently set for November due to availability) Follow-up in 4 weeks Reviewed signs of labor and healthy practices 11/26/24 <del>?</del> 27w 1d 79.152 kg 118/82 at 27 weeks and 1 day gestation presents for routine care. Patient was recently diagnosed with gestational diabetes mellitus based on abnormal 2-hour glucose tolerance test (Fasting 90, 1hr 173, 2hr 162). She reports feeling tired most days. movement is reported as active. Denies contractions, LOF, VB, headache, visual changes, or epigastric pain. Plan: Problem List: Gestational diabetes mellitus, 27w1d, anemia of . Glucometer prescribed and sent to [facility]. Patient instructed to check fasting glucose in the morning and 1 hour postprandial after each meal, logging values daily for one week and submitting for review. Advised to avoid sweet foods and refined carbohydrates including white rice and flour tortillas. Monitor for anemia; follow up in 4 weeks. Routine counseling provided. 12/24/24 <del>?</del> 31w 1d 81.703 kg 105/66 [facility] Ultrasound Report (12.14.2024): - Estimated Weight: 16.01 grams (3 pounds 8 ounces) - Growth Percentile: 64th percentile - Amniotic Fluid Index (JENNIFER): 14.23 Reports good movement, no contractions. Newly diagnosed GDM, glucose logs show postprandial spikes up to 195. No GDM in prior pregnancies. FHR 139?[facility]. [facility] [place]: EFW 3lb 8oz (64%), JENNIFER 14.23. Plan: Start metformin 500mg BID, strict diet changes (low-carb, high-protein, no sweet drinks or high-sugar fruits), monitor sugars for 7 days, escalate to insulin if >160 persists, weekly monitoring pending auth, follow up with glucose logs in 1 week, continue scheduled growth ultrasounds. 12/30/24 <del>?</del> 32w 0d 80.002 kg 102/66 occasional cephalic 32 145 active at 32w with GDM well-controlled on metformin 500 mg BID (breakfast, noon), BG 86?93 fasting and 111?134 postprandial. Plan: Continue metformin and diet; f/u in 2w with culture swab 01/13/25 <del>?</del> 34w 0d 78.698 kg 99/64 occasional cephalic 35 145 active , 34w0d No CTX/LOF/VB, good FM. GDM on metformin with FBG 85?92, PP 108?157 (mostly <130). FHR 145. Undergoing biweekly monitoring (Sat/Edie). Plan: Continue metformin, hospital monitoring biweekly, f/u next week with Thea and week after with Dr. Alonzo, weekly visits from now on, plan induction 38?39w if glycemic control stable, earlier if sugars increase. 01/20/25 <del>?</del> 35w 0d 79.038 kg 99/66 occasional cephalic 35 156 active No CTX/LOF?VB. Fetus is active. Patient reports that blood sugars are at goal. Her fastings are all below 100. And an hour after meals her sugars are below 140. Reports good movement. Patient is compliant with biweekly monitoring. And patient is taking metformin 500 twice daily PLAN: GBS today. Continue metformin as directed. Continue with biweekly NST BPP. Kick count twice a day. Reviewed danger signs and signs symptoms of labor. Return in a week with Dr. Burciaga 01/29/25 <del>?</del> 36w 2d 79.379 kg 100/68 absent cephalic 37 165 active at 39w with well-controlled GDM on metformin BID, GBS+, reassuring FHR 145, hx of prior inductions. Plan: Induction scheduled 02/28 (39w4d), continue metformin, intrapartum abx for GBS, continue biweekly NSTs (Sat/), f/u in 1 week. RAY Calculator Estimated Delivery Date Method Current WG Current Estimate 02/24/25 Ultrasound #1 36w 2d Expected Delivery Route/Plan Induction of labor for 02/24/2025 at 39 weeks and 4 days Office Procedures OB Clinic LOC & Office Proc's Nursing/Assessment Patient Status: Established Patient OB Clinic Nursing Assessment: Medication Reconciliation, Update PMH in EMR and Vital Signs OB Clinic Coordination of Care: Complex Care and Chronic Disease 1-5, Education Complex Pt/Fam, Consent,records obtained, informed consent, Education Simp Pt/Fam, Results/Orders obtained and Staff clarify orders Special Needs: Heart tones Established Patient Charge Established Patient Point Assignment: 140 Established Patient Point Charge: EP Level 4 (120-155)
== END 2025-01-29 11:00 | disposition home or self-care (01) ==
LOC: HODSOBC 10:31
PROVIDERS: Supervising Provider Obstetrics & Gynecology; Visit Provider Obstetrics & Gynecology
DX: O09.893 Supervision of other high risk pregnancies, third trimester (principal); O24.415 Gestational diabetes mellitus in pregnancy, controlled by oral hypoglycemic drugs; O99.820 Streptococcus B carrier state complicating pregnancy; Z87.59 Personal history of other complications of pregnancy, childbirth and the puerperium; Z88.6 Allergy status to analgesic agent
CPT/HCPCS: 99214; G0463

== ENCOUNTER 2025-02-08 14:31 | Outpatient (RCR) | payer MEDICAID, SELFPAY ==
--- NOTE | 2024-12-31 14:57 | XR_ITS ---
Examination: Biophysical profile, ultrasound Date and time of exam: December 31, 2024 1510 hours INDICATIONS: Gestational diabetes diagnosis Technique: Multiple transabdominal sonographic images of the pelvis abdomen obtained. Attention is directed to the breathing movement, gross body movement, amniotic fluid volume and tone. Findings: Amniotic fluid index 14.1 cm Total biophysical profile is 8 of 8. breathing movement is 2. Gross body movement is 2. tone is 2. Qualitative amniotic fluid volume is 2 Impression: Biophysical profile is 8 of 8.
[2024-12-31 16:12] VITALS: BP 94/53; PULSE 84; RESP 16; TEMP 36.7
--- NOTE | 2025-01-04 14:36 | XR_ITS ---
Examination: Biophysical profile, ultrasound Date and time of exam: January 04, 2025 1449 hours INDICATIONS: Diagnosis gestational diabetes Technique: Multiple transabdominal sonographic images of the pelvis abdomen obtained. Attention is directed to the breathing movement, gross body movement, amniotic fluid volume and tone. Findings: Amniotic fluid index 15.9 cm Total biophysical profile is 8 of 8. breathing movement is 2. Gross body movement is 2. tone is 2. Qualitative amniotic fluid volume is 2 Impression: Biophysical profile is 8 of 8.
[2025-01-04 15:15] VITALS: BP 108/69; PULSE 87; RESP 16; TEMP 36.7
--- NOTE | 2025-01-11 14:48 | XR_ITS ---
Examination: Biophysical profile, ultrasound Date and time of exam: January 11, 2025 1453 hours INDICATIONS: Diagnosis gestational diabetes Technique: Multiple transabdominal sonographic images of the pelvis abdomen obtained. Attention is directed to the breathing movement, gross body movement, amniotic fluid volume and tone. Findings: Amniotic fluid index 17.7 cm Total biophysical profile is 8 of 8. breathing movement is 2. Gross body movement is 2. tone is 2. Qualitative amniotic fluid volume is 2 Impression: Biophysical profile is 8 of 8.
[2025-01-11 15:47] VITALS: BP 95/59; PULSE 80; RESP 16; TEMP 36.7
--- NOTE | 2025-01-14 14:47 | XR_ITS ---
Examination: Biophysical profile, ultrasound Date and time of exam: January 14, 2025 1450 hours INDICATIONS: Diagnosis gestational diabetes Technique: Multiple transabdominal sonographic images of the pelvis abdomen obtained. Attention is directed to the breathing movement, gross body movement, amniotic fluid volume and tone. Findings: Amniotic fluid index 10.0 cm Total biophysical profile is 8 of 8. breathing movement is 2. Gross body movement is 2. tone is 2. Qualitative amniotic fluid volume is 2 Impression: Biophysical profile is 8 of 8.
[2025-01-14 15:34] VITALS: BP 91/53; PULSE 88; RESP 16; TEMP 36.7
--- NOTE | 2025-01-18 14:33 | XR_ITS ---
Examination: Biophysical profile, ultrasound Date and time of exam: January 18, 2025 1440 hours INDICATIONS: Diagnosis gestational diabetes Technique: Multiple transabdominal sonographic images of the pelvis abdomen obtained. Attention is directed to the breathing movement, gross body movement, amniotic fluid volume and tone. Findings: Amniotic fluid index 10.0 cm Total biophysical profile is 8 of 8. breathing movement is 2. Gross body movement is 2. tone is 2. Qualitative amniotic fluid volume is 2 Impression: Biophysical profile is 8 of 8.
[2025-01-18 16:07] VITALS: BP 106/62; PULSE 66; RESP 16; TEMP 36.7
--- NOTE | 2025-01-21 14:48 | XR_ITS ---
Examination: Biophysical profile, ultrasound Date and time of exam: January 21, 2025 1451 hours INDICATIONS: Gestational diabetes Technique: Multiple transabdominal sonographic images of the pelvis abdomen obtained. Attention is directed to the breathing movement, gross body movement, amniotic fluid volume and tone. Findings: Amniotic fluid index 10.6 cm Total biophysical profile is 8 of 8. breathing movement is 2. Gross body movement is 2. tone is 2. Qualitative amniotic fluid volume is 2 Impression: Biophysical profile is 8 of 8.
[2025-01-21 15:13] VITALS: BP 113/62; PULSE 80; RESP 16
--- NOTE | 2025-01-28 14:21 | XR_ITS ---
Examination: Biophysical profile, ultrasound Date and time of exam: January 28, 2025 1424 hours INDICATIONS: Diagnosis gestational diabetes Technique: Multiple transabdominal sonographic images of the pelvis abdomen obtained. Attention is directed to the breathing movement, gross body movement, amniotic fluid volume and tone. Findings: Amniotic fluid index 10.8 cm Total biophysical profile is 8 of 8. breathing movement is 2. Gross body movement is 2. tone is 2. Qualitative amniotic fluid volume is 2 Impression: Biophysical profile is 8 of 8.
[2025-01-28 14:54] VITALS: BP 108/59; PULSE 78; RESP 16; TEMP 36.7
--- NOTE | 2025-02-01 14:21 | XR_ITS ---
Examination: Biophysical profile, ultrasound Date and time of exam: February 01, 2025 1425 hours INDICATIONS: Diagnosis gestational diabetes Technique: Multiple transabdominal sonographic images of the pelvis abdomen obtained. Attention is directed to the breathing movement, gross body movement, amniotic fluid volume and tone. Findings: Amniotic fluid index 10.4 cm Total biophysical profile is 8 of 8. breathing movement is 2. Gross body movement is 2. tone is 2. Qualitative amniotic fluid volume is 2 Impression: Biophysical profile is 8 of 8.
[2025-02-01 14:46] VITALS: BP 103/63; PULSE 82; RESP 16
--- NOTE | 2025-02-04 14:54 | XR_ITS ---
Examination: Biophysical profile, ultrasound Date and time of exam: February 04, 2025 1458 hours INDICATIONS: Diagnosis gestational diabetes Technique: Multiple transabdominal sonographic images of the pelvis abdomen obtained. Attention is directed to the breathing movement, gross body movement, amniotic fluid volume and tone. Findings: Amniotic fluid index 6.6 cm Total biophysical profile is 8 of 8. breathing movement is 2. Gross body movement is 2. tone is 2. Qualitative amniotic fluid volume is 2 Impression: Biophysical profile is 8 of 8.
[2025-02-04 15:18] VITALS: BP 97/61; PULSE 92; RESP 16; TEMP 36.7
--- NOTE | 2025-02-08 14:42 | XR_ITS ---
Examination: Biophysical profile, ultrasound Date and time of exam: February 08, 2025 1448 hours INDICATIONS: Gestational diabetes diagnosis Technique: Multiple transabdominal sonographic images of the pelvis abdomen obtained. Attention is directed to the breathing movement, gross body movement, amniotic fluid volume and tone. Findings: Amniotic fluid index 9.7 cm Total biophysical profile is 8 of 8. breathing movement is 2. Gross body movement is 2. tone is 2. Qualitative amniotic fluid volume is 2 Impression: Biophysical profile is 8 of 8.
[2025-02-08 15:19] VITALS: BP 111/65; PULSE 88; RESP 16; TEMP 36.7
== END 2025-02-08 23:59 | disposition home or self-care (01) ==
LOC: S4S1 14:31
PROVIDERS: Referring Provider Obstetrics & Gynecology; Visit Provider Obstetrics & Gynecology
DX: O24.415 Gestational diabetes mellitus in pregnancy, controlled by oral hypoglycemic drugs (principal); Z3A.37 37 weeks gestation of pregnancy
CPT/HCPCS: 59025; 76819

== ENCOUNTER 2025-02-09 11:32 | Outpatient (AMB) | payer MEDICAID, SELFPAY ==
[2025-02-09 11:43] VITALS: BP 106/75; PULSE 87; RESP 17; TEMP 36.4; O2SAT 98; BMI 29.9
--- NOTE | 2025-02-09 11:43 | OBCLNT_ITS ---
Vital Signs 02/09/25 11:43 Height 1.63 m Height Method Stated Weight 79.492 kg Weight Measurement Method Standing Scale BMI 29.9 BP 106/75 Blood Pressure Source Automatic Cuff Blood Pressure Location Right Upper Arm Position Sitting Respiration 17 Pulse 87 Pulse Source Monitor Temp 97.6 F Temp Source Temporal Artery Scan Pulse Oximetry (%) 98 Oxygen Delivery Method Room Air Allergies/Home Meds Allergies & Medications Allergies ibuprofen Allergy (Intermediate, Verified 02/09/25 11:43) Swelling of Lip/Tongue/Throat Medication Reconciliation Vitamin * 1 tab PO QDAY #0 tabs 04/03/14 [History Confirmed 02/09/25] blood sugar diagnostic (Blood Glucose Test strips) #10 ea 11/26/24 [Rx Confirmed 02/09/25] blood-glucose meter #1 ea 11/26/24 [Rx Confirmed 02/09/25] lancets #100 ea 11/26/24 [Rx Confirmed 02/09/25] metformin 500 mg tablet 500 mg PO BID 30 days #60 tabs 12/24/24 [Rx Confirmed 02/09/25] Intake Visit Data Collection New Patient or Established: Established Patient (seen at [facility] within 3 years) Reason for Visit:: OBC Seen by Clinical Staff ONLY (RN/MA): No Head Of Quality Required: No Do You Feel Safe at Home: Yes Authorities Contacted: N/A PCP or OBGYN visit in last 3 months: Yes Date of Last PCP or OBGYN visit: 02/08/25 Hx Now: Yes Are you currently on any form of Control: No Pain Present Currently: No Pain Scale Used: Yousif-Weiner/Numerical Pain scale:: 0 Smoking Status Smoking Status: Never smoker Questionnaires Covid-19 Vaccine Questionnaire Has patient been vacinated for Covid-19 Have you been vacinated for Covid-19: No PHQ-9 PHQ-2 Over the last 2 weeks, how often have you been bothered by any of the following problems? 1. Little interest or pleasure in doing things: not at all 2. Feeling down, depressed, or hopeless: not at all Total score: 0 PHQ-9 3. Trouble falling or staying asleep, or sleeping too much: Not at all 4. Feeling tired or having little energy: Not at all 5. Poor appetite or overeating: Not at all 6. Feeling bad about yourself - or that you are a failure or have let yourself or your family down: Not at all 7. Trouble concentrating on things, such as reading the newspaper or watching television: Not at all 8. Moving or speaking so slowly that other people could have noticed? - Or the opposite - being so fidgety or restless that you have been moving around a lot more than usual: not at all 9. Thoughts that you would be better off or of hurting yourself in some way: Not at all Total score: 0 If you checked off any problems, how difficult have these problems made it for you to do your work, take care of things at home, or get along with other people?: not difficult at all Source: Developed by Drs. Eddie Hansen, Anai Li, Bob Gomez and colleagues, with an educational yunior from [employer]. 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 No CTX/LOF/VB. Reports good FM. No MARTINEZ/VS , Epig/RUQ pain. History of gestational diabetes in prior . No current issues reported. AFP drawn; results pending. Assessment & Plan: Routine care in 2nd trimester, history of GDM. Order 2-hour GTT; patient instructed to come fasting Schedule ultrasound before 28w (currentl y set for November due to availability) Follow-up in 4 weeks Reviewed signs of labor and healthy practi archie 11/26/24 -?-?-?-?-?-?-?-?-?-?-?-?- 27w 6d 79.152 kg 118/82 at 27 weeks and 1 day gestation presents for routine care. Patient was recently diagnosed with gestational diabetes mellitus based on abnormal 2-hour glucose tolerance test (Fasting 90, 1hr 173, 2hr 162). She reports feeling tired most days. movement is reported as active. Denies contractions, LOF, VB, headache, visual changes, or epigastric pain. Plan: Problem List: Gestational diabetes maurice zaragoza, 27w1d, anemia of . Glucometer prescribed and sent to [facility]. P atient instructed to check fasting glucose in the morning and 1 hour postprandial after each meal, logging values daily for one week and submitting for review. Advised to avoid sweet foods and refined carbohydrates including white rice and flour tortillas. Monitor for anemia; follow up in 4 weeks. Routine counseling provided. 12/24/24 -?-?-?-?-?-?-?-?-?-?-?-?- 31w 6d 81.703 kg 105/66 [facility] Ultrasound Report (12.14.2024): - Estimated Weight: 16.01 grams (3 pounds 8 ounces) - Growth Percentile: 64th percenti le - Amniotic Fluid Index (JENNIFER): 14.23 Reports good movement, no contractions. Newly diagnosed GDM, glucose logs show postprandial spikes up to 195. No GDM in prior pregnancies. FHR 139?140. MFM US 12/14: EFW 3lb 8oz (64%), JENNIFER 14.23. Plan: Start metformin 500mg BID, strict diet changes (low-carb, high- protein, no sweet drinks or high-sugar fruits), monitor sugars for 7 days, escalate to insulin if >160 persists, weekly monitoring pending auth, follow up with glucose logs in 1 week, continue scheduled growth ultrasounds. 12/30/24 -?-?-?-?-?-?-?-?-?-?-?-?- 32w 5d 80.002 kg 102/66 occasional cephalic 32 145 active at 32w with GDM well-controlled on metformin 500 mg BID (breakfast, noon), BG 86?93 fasting and 111?134 postprandial. Plan: Continue metformin and diet; f/u in 2w with culture swab 01/13/25 -?-?-?-?-?-?-?-?-?-?-?-?- 34w 5d 78.698 kg 99/64 occasional cephalic 35 145 active , 34w0d No CTX/LOF/VB, good FM. GDM on metformin with FBG 85?92, PP 108?157 (mostly <130). FHR 145. Undergoing biweekly monitoring (Sat/Edie). Plan: Continue metformin, hospital monitoring biweekly, f/u next week with Thea and week after with Dr. Alonzo, weekly visits from now on, plan induction 38?39w if glycemic control stable, earlier if sugars increase. 01/20/25 -?-?-?-?-?-?-?-?-?-?-?-?- 35w 5d 79.038 kg 99/66 occasional cephalic 35 156 active No CTX/LOF?VB. Fetus is active. Patient reports that blood sugars are at goal. Her fastings are all below 100. And an hour after meals her sugars are below 140. Reports good movement. Patient is compliant with biweekly monitoring. And patient is taking metformin 500 twice daily PLAN: GBS today. Continue metformin as directed. Continue with biweekly NST BPP. Kick count twice a day. Reviewed danger signs and signs symptoms of labor. Return in a week with Dr. Burciaga 01/29/25 -?-?-?-?-?-?-?-?-?-?-?-?- 37w 0d 79.379 kg 100/68 absent cephalic 37 165 active at 39w with well-controlled GDM on metformin BID, GBS+, reassuring FHR 145, hx of prior inductions. Plan: Induction scheduled 02/28 (39w4d), continue metformin, intrapartum abx for GBS, continue biweekly NSTs (Sat/urs), f/u in 1 week. 02/09/25 -?-?-?-?-?-?-?-?-?-?-?-?- 38w 4d 79.492 kg 106/75 occasional cephalic 37 155 active at 37 weeks and 6 days gestation based on 18-week ultrasound dated September 24, 2026. Patient is GBS positive. Good glycemic control reported. Discrepancy noted between ultrasound-based due date and previously established due date. Reviewed MFM ultrasound which is scanned into her chart and she does indeed have a final estimated due date of 02/19. - IOL on 02/16 at 39w+ based on her MFM sono (scanned into chart) RAY Calculator Estimated Delivery Date Method Current WG Current Estimate 02/19/25 LMP (Certain) 39w 3d Other Estimates 02/24/25 Ultrasound #1 38w 5d Expected Delivery Route/Plan Induction of labor for 02/16 at 39w+ based on MFM report Office Procedures OB Clinic LOC & Office Proc's Nursing/Assessment Patient Status: Established Patient OB Clinic Nursing Assessment: Medication Reconciliation, Update PMH in EMR and Vital Signs OB Clinic Coordination of Care: Complex Care and Chronic Disease 1-5, Consent,records obtained, informed consent, Education Simp Pt/Fam and Staff clarify orders Special Needs: Heart tones Established Patient Charge Established Patient Point Assignment: 115 Established Patient Point Charge: EP Level 3 (80-115)
== END 2025-02-09 11:56 | disposition home or self-care (01) ==
LOC: HODSOBC 11:32
PROVIDERS: Supervising Provider Obstetrics & Gynecology; Visit Provider Obstetrics & Gynecology
DX: O09.893 Supervision of other high risk pregnancies, third trimester (principal); O99.820 Streptococcus B carrier state complicating pregnancy; O26.843 Uterine size-date discrepancy, third trimester; O24.415 Gestational diabetes mellitus in pregnancy, controlled by oral hypoglycemic drugs; Z3A.38 38 weeks gestation of pregnancy; Z88.6 Allergy status to analgesic agent
CPT/HCPCS: 99213; G0463

== ENCOUNTER 2025-02-17 21:50 | Inpatient (IN) | payer MEDICAID, SELFPAY ==
[2025-02-17] VITALS (7 sets, daily range): BP systolic 91–117; BP diastolic 55–81; PULSE 74–94; RESP 18; TEMP 36.6; BMI 30.4
--- NOTE | 2025-02-17 22:04 | XR_ITS ---
Examination: age limited TECHNIQUE: Limited transabdominal sonographic images pelvis Date and time: February 17, 2025 10:20 PM INDICATIONS: Pelvic contractions today, unknown presentation. FINDINGS: Viable intrauterine gestation cephalic presentation spine maternal right. Cardiac motion 147 BPM Estimated weight 3431 g Estimated age 38 weeks 2 days IMPRESSION: Viable intrauterine gestation in cephalic presentation.
[2025-02-17 23:29] LABS: Basophils # (Auto) 0.0 Thou/mm3 (0.0-0.2); Basophils % (Auto) 0 % (0-2.5); Eosinophils # (Auto) 0.1 Thou/mm3 (0.0-0.5); Eosinophils % (Auto) 1 % (0-10); Hematocrit 32.2 % (36.0-46.0); Hemoglobin 10.4 g/dL (12.0-16.0); Immature Granulocytes Auto 0.04 Thou/mm3 (0.00-0.00); Lymphocytes # (Auto) 2.3 Thou/mm3 (1.0-4.8); Lymphocytes % (Auto) 30 % (10-50); Mean Corpuscular HGB Conc 32.3 g/dl (31.0-37.0); Mean Corpuscular Hemoglobin 27.4 pg (25.0-35.0); Mean Corpuscular Volume 85 fL (80-100); Monocytes # (Auto) 0.5 Thou/mm3 (0.0-0.8); Monocytes % (Auto) 7 % (0-12); Neutrophils # (Auto) 4.7 Thou/mm3 (1.8-7.7); Neutrophils % (Auto) 62 % (37-80); Nucleated Red Blood Cell # 0.00 Thou/mm3 (0.00-0.00); Nucleated Red Blood Cell % 0 /100 WBC (0); Platelet Count 270 Thou/mm3 (140-440); RDW Standard Deviation 44.8 fL (36.4-46.3); Red Blood Count 3.80 Miln/mm3 (4.00-5.20); White Blood Count 7.6 Thou/mm3 (3.6-11.0)
[2025-02-17 23:56] LABS: Hepatitis B Surface Antigen Non Reactive (Non React); Rubella, IgG Antibody Reactive (Immune)
[2025-02-17 23:59] LABS: Syphilis Nonreactive (Nonreactive)
[2025-02-18] VITALS (21 sets, daily range): BP systolic 95–115; BP diastolic 59–79; PULSE 61–91; RESP 16–18; TEMP 36.6–37.4; O2SAT 98–99
[2025-02-18] MEDS: RINGERS LACTATED 1000 ML 1,000 ML 100 ML IV (01:28)
[2025-02-18 01:39] LABS: Amphetamine/Metham Scrn,Ur OB Negative (Negative); Benzoylecgonine Screen, Ur OB Negative (Negative); Opiate Screen,Urine OB Negative (Negative); THC Screen,Urine OB Negative (Negative)
[2025-02-18 02:30] LABS: HIV (1&2) Antibody Rapid Non-Reactive
[2025-02-18] MEDS: fentaNYL CIT INJ 50 mCg/ML AMP 2ML 100 MCG IVP ×2 (02:50→04:03)
[2025-02-18] MEDS: Ampicillin Inj 2,000 MG in SODIUM CHLORIDE 0.9% (POP) 100 ML 200 MG IV (04:56)
[2025-02-18] MEDS: OXYTOCIN in NS 20 units 20 UNIT/1,000 ML BAG 125 UNIT IV (05:11)
[2025-02-18] MEDS: LIDOCAINE HCL 1% 20 ML VIAL INFL (05:15)
[2025-02-18] MEDS: METHYLERGONOVINE INJ 0.2 MG/ML VIAL IM (05:15)
--- NOTE | 2025-02-18 05:29 | PD.LDHP ---
Documentation for date of: 02/18/25 OB Labor/Induct. HPI History of Present Illness Chief complaint: induction of labor : 3 Para: 2 Term pregnancies: 2 pregnancies: 0 Living children: 2 History of Abortions: Spontaneous and Elective: 0 History of Vaginal deliveries: 2 History of sections: No History of : No Date of last menstrual period: 05/15/24 RAY: 02/19/25 Gestational Age (weeks): 39 Gestational Age (days): 6 Gestational age based on last menstrual period: 39 History of present illness: Patient presents for scheduled induction of labor. Indication: A2GDM (metformin). No regular/painful ctx. No LOF. No vaginal bleeding. Normal movement. History of Present Dating criteria: LMP confirmed by 2nd trimester US Adequate Care: Yes (But first visit was at 18 weeks) Narrative: Hx of 2 term , uncomplicated. GDM with 2nd . Current complicated by: A2GDM (metformin)- EFW 68%ile on 01/25 Current BMI 30.5 Anemia taking iron Labs Maternal Blood Type: O Pos Labs: Positive: Rubella Titre and Group Beta Strep, Negative: RPR, Hepatitis B and HIV and Unknown: Chlamydia, Gonorrhea, Herpes Type 1 and Herpes Type 2 Narrative: - Fastin-3 - 1 hour: 173 - 2 hour: 162 Review of Systems Review of Systems Narrative Review of Systems: Review of Systems Systems Reviewed: All systems reviewed, normal except as documented Constitutional Constitutional: Denies body ache(s), Denies chills, Denies fever(s) and Denies headache(s) ENT Ears, Nose, Mouth, and Throat: Denies headache(s) and Denies vertigo Cardiovascular Cardiovascular: Denies chest pain, Denies palpitations, Denies dyspnea and Denies syncope Respiratory Respiratory: Denies cough, Denies dyspnea Gastrointestinal Gastrointestinal: Denies nausea and Denies vomiting Neurologic Neurologic: Denies convulsions, Denies headache(s), Denies other visual disturbances, Denies syncope and Denies vertigo Past Medical History Family History OTHER FAMILY HX: Hx of thalasemia Surgical History SURGICAL: Negative Section Social History SOCIAL: , good support. No tobacco/ETOH/illicit drug use Past Medical History Comments PMH COMMENT: Obesity Meds Home Medications and Allergies Home Medications ?Medication ?Instructions ?Recorded ?Confirmed ?Type Vitamin * 1 tab PO QDAY #0 tabs 04/03/14 02/18/25 History Allergies Allergy/AdvReac Type Severity Reaction Status Date / Time ibuprofen Allergy Intermediate Swelling Verified 02/18/25 00:54 of Lip/Tongue/Throat OB Exam Physical Exam Vital signs: Temp Pulse Resp BP 98.3 F 91 16 108/65 02/18/25 01:33 02/18/25 05:24 02/18/25 01:33 02/18/25 05:24 Narrative: General: well developed, well nourished, no acute distress, conversant Cardiac: normal heart rate Lungs: breathing without distress Abdomen: soft, gravid, non-tender, no rebound or guarding Extremities: no edema BLE Detailed Labor and Delivery Exam Dilation (cm): 2 Effacement (%): 0 Cervix position: mid station: -3 Consistency: medium Presentation: Vertex Membranes: intact Baseline heart rate: 125 monitor accelerations: 15x15 monitor 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 SCE: 2/thick/-3. Vitals wnl, benign exam. Reassuring assessment overall. PMhx/PNC significant for: -PNC with Dr. 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 Ampicillin per protocol. -Will initiate IOL with: cytotec 25mcg PV Q4hr -Anticipate -Safe to proceed Moraima Flores MD (2) Gestational diabetes: Status: Acute (3) Positive GBS test: Status: Acute (2) Gestational diabetes Qualifiers: Gestational diabetes mellitus control: oral hypoglycemic-controlled Trimester: third trimester Qualified Code(s): O24.415 - Gestational diabetes mellitus in , controlled by oral hypoglycemic drugs
--- NOTE | 2025-02-18 05:51 | PD.LDDELS ---
Data ([place]) Data Hx Section: No : 3 Term: 2 : 0 Livin Abortions: Spontaneous & Theraputic: 0 Delivery Data ([place]) Labor Data Initiation of labor: Induction Induction/Augmentation Agent: Cytotec-Vaginal ROM date: 02/18/25 ROM time: 05:04 Amniotic membrane rupture type: Spontaneous Amniotic fluid description: Clear Delivery Data Onset of labor date: 02/18/25 Onset of labor time: 02:50 Complete dilation date: 02/18/25 Complete dilation time: 05:02 delivery date: 02/18/25 [place] delivery time: 05:04 Placenta delivery date: 02/18/25 Placenta delivery time: 05:10 Stage 1 total time: Labor - Stage 1 Duration 2 hours and 12 minutes Delivered by: Anabel Mota Ict Business Analyst at delivery: No Support person(s) at delivery: father of the baby Delivery Method Delivery method: Normal Vaginal Delivery Presentation: Vertex Anesthesia Type Anesthesia Type: None Placenta Placenta delivery description: Spontaneous Cord blood sent to lab: Yes cord blood collection: Cord Blood Type Episiotomy Episiotomy description: None EBL Estimated blood loss (ml): 250 Umbilical Cord cord description: 3 Vessels Additional Procedures [place] is a 29yo s/p uncomplicated at 39&6wk after undergoing IOL for A2GDM (metformin), delivering at 0504 on 02/18/2025. On presentation, SCE was 2/thick/-3. She progressed with a single dose of PV cytotec to C/C/0 at which point she began pushing. She was not able to receive an epidural. I was called by RN stating patient went extremely rapidly from 6cm to complete. I immediately went to the room, but RN delivered before I arrived. Per RN report, had spontaneous cry and was vigorous. Apgars 6/9. Infant placed on maternal abdomen where nose/mouth were suctioned and dried/stimulated. After approximately 1 minute, cord was clamped x2 and cut by FOB. Cord blood collected for typing. With fundal massage and cord traction, placenta delivered spontaneously and intact with 3 vessel centrally inserted cord. Bimanual massage performed and IV pitocin given per protocol with fundus then firm at u-2cm and hemostasis noted. Inspection of perineum and vagina a small, superficial 2nd degree midline perineal laceration which was repaired in routine fashion with 3-0 vicryl after anesthetizing with 1% lidocaine- total reapproximation and hemostasis achieved. Small trickle of blood, so sweep just within DENISSE performed which retrieved a small amount of clot. 0.2mg IM methergine given with observed hemostasis after. All counts correct x2. Mom and were doing well when I left the room. Moraima Flores MD Complications Complications: none [place] Data ([place]) [place] Data 's gender: Female 1 minute: 6 5 minutes: 9
[2025-02-18] MEDS: BENZO/LANO/ALOE (Dermoplast) 60 GM CAN 1 SPRAY TOP ×2 (06:51→07:38)
--- NOTE | 2025-02-18 07:10 | PC.NURSE ---
02/17/25 to 02/18/25 RN precepting Eron Corea RN, review and agree to labor progress assessment charting.
[2025-02-18] MEDS: DOCUSATE SOD 100 MG CAPSULE PO ×2 (08:23→20:28)
[2025-02-18] MEDS: PRENATAL VITAMIN/FE FUM/FA TABLET 1 TAB PO (08:24)
[2025-02-18 09:45] LABS: Chlamydia trachomatis PCR Negative (Not Detect); Neisseria Gonorrhoeae DNA PCR Negative (Not Detect); Trichomonas Negative (Negative)
[2025-02-18 12:26] LABS: Basophils # (Auto) 0.0 Thou/mm3 (0.0-0.2); Basophils % (Auto) 0 % (0-2.5); Eosinophils # (Auto) 0.0 Thou/mm3 (0.0-0.5); Eosinophils % (Auto) 0 % (0-10); Hematocrit 32.6 % (36.0-46.0); Hemoglobin 10.7 g/dL (12.0-16.0); Immature Granulocytes Auto 0.06 Thou/mm3 (0.00-0.00); Lymphocytes # (Auto) 2.1 Thou/mm3 (1.0-4.8); Lymphocytes % (Auto) 13 % (10-50); Mean Corpuscular HGB Conc 32.8 g/dl (31.0-37.0); Mean Corpuscular Hemoglobin 27.6 pg (25.0-35.0); Mean Corpuscular Volume 84 fL (80-100); Monocytes # (Auto) 0.8 Thou/mm3 (0.0-0.8); Monocytes % (Auto) 5 % (0-12); Neutrophils # (Auto) 13.2 Thou/mm3 (1.8-7.7); Neutrophils % (Auto) 81 % (37-80); Nucleated Red Blood Cell # 0.00 Thou/mm3 (0.00-0.00); Nucleated Red Blood Cell % 0 /100 WBC (0); Platelet Count 263 Thou/mm3 (140-440); RDW Standard Deviation 44.7 fL (36.4-46.3); Red Blood Count 3.87 Miln/mm3 (4.00-5.20); White Blood Count 16.2 Thou/mm3 (3.6-11.0)
--- NOTE | 2025-02-18 14:25 | PC.NURSE ---
Dr. Flores made aware of cbc results no new orders
[2025-02-18] MEDS: ACETAMINOPHEN 325 MG TABLET 650 MG PO ×2 (15:45→20:28)
[2025-02-19 03:55] VITALS: BP 96/62; PULSE 69; RESP 18; TEMP 36.4; O2SAT 97
[2025-02-19 08:50] VITALS: BP 98/79; PULSE 69; TEMP 36.6; O2SAT 97
[2025-02-19] MEDS: PRENATAL VITAMIN/FE FUM/FA TABLET 1 TAB PO (09:01)
[2025-02-19] MEDS: DOCUSATE SOD 100 MG CAPSULE PO (09:01)
--- NOTE | 2025-02-19 09:31 | PC.CC ---
Gracie KIDD was consulted regarding late to care at 18 weeks. Gracie KIDD, met with patient [id number] to do initial assessment due to being late to care. PHOTO LAB TECHNICIAN introduced herself, role in the agency, reason for visit, and discussed limits of confidentiality. Patient appeared alert and oriented to self, time, place, and situation. Patient appears stated age. Patient made good eye contact. Patient?s attitude appeared pleasant and cooperative. Patient?s behavior and mood appears ordinary. No signs of delusions or hallucinations. Patient confirmed information on her demographics. Patient reports she was not late to care that she initially received care at [facility] but then was informed that the OB was no longer going to see patients for care. Patient had to find a new provider and this is what caused longer delay in care. She reports that after she established care she was consistent. Patient reports that the father of the baby is Gavin Coffman and he is in a relationship with the mother. Patient has two other children, 10 year-old female, and 4 year-old male. Patient has no hisotry of domestic violence or CWS involvement. Patient reports she has all supplies she needs for her and plans on breastfeed the patient. Patient is receiving WIC, [employer], and SNAP. Patient's support system is her significant other, Gavin. PHOTO LAB TECHNICIAN provided psychoeducation regarding baby blues and Post- Depression, as well as counseling groups at the [facility]. SW provided community resources: Warm Line and Crisis Line. BERNABE, provided update to bedside RN.
--- NOTE | 2025-02-19 09:53 | ESPR_ITS ---
Subjective Subjective Interval history: Patient is a 29-year-old G3 now P3003 status post vaginal delivery yesterday by Dr. Flores around 5 in the morning. Patient states she had 2 stitches placed. She would like to go home. She has a 10-year-old daughter 4-year-old son at home and now this baby. She is breast-feeding. She was on metformin during . She saw Thea Rice and Dr. Alonzo at the [facility] for her care. This morning she denies fevers chills or heavy vaginal bleeding. Exam Vital Signs Temp Pulse Resp BP Pulse Ox O2 Del Method 97.6 F 69 18 96/62 97 Room Air 02/19/25 03:55 02/19/25 03:55 02/19/25 03:55 02/19/25 03:55 02/19/25 03:55 02/19/25 03:55 Narrative Exam Fundus firm at umbilicus nontender extremities show no significant edema or erythema. Objective Labs 02/18/25 11:54 Labs: Laboratory Results - last 24 hr 02/18/25 11:54 WBC 16.2 H D RBC 3.87 L Hgb 10.7 L Hct 32.6 L MCV 84 MCH 27.6 MCHC 32.8 RDW Std Deviation 44.7 Plt Count 263 Neut % (Auto) 81 H Lymph % (Auto) 13 [place] % (Auto) 5 Eos % (Auto) 0 Baso % (Auto) 0 Neut # (Auto) 13.2 H Lymph # (Auto) 2.1 [place] # (Auto) 0.8 Eos # (Auto) 0.0 Baso # (Auto) 0.0 Immature Gran # (Auto) 0.06 H Absolute Nucleated RBC 0.00 Immature Gran % 0 Nucleated RBC % 0 Assessment & Plan Problem List (1) Gestational diabetes: Problem details: Patient was on metformin during . She will check her sugars and follow-up as needed. Status: Acute (2) care following vaginal delivery: Problem details: Patient will be discharged today. All discharge instructions given. Pelvic rest x 6 weeks Status: Acute Time Spent With Patient Time: Total time spent is greater than 50% in coordination of care (as documented) at patient's floor/unit and/or counseling patient: Time with patient: less than 15 minutes
--- NOTE | 2025-02-19 09:57 | ESDS_ITS ---
DS: Providers Provider Date of admission: 02/17/25 21:50 Primary care physician: Physician No Primary/Family Admitting Provider: Moramia Flores MD Attending Provider on Admission: Moraima Flores MD Consults: 02/18/25 05:31 Referral Routine Comment: Attending Provider on DC: Caterina Hernandez MD ([facility]) Discharging Provider: Caterina Hernandez MD ([facility]) Anticipated date of discharge: 02/19/25 DS: Diagnosis Discharge Diagnosis (1) care following vaginal delivery: Status: Acute Assessment & Plan: Discharge instructions given. Pelvic rest x 6 weeks. (2) Gestational diabetes: Status: Acute Assessment & Plan: Patient knows how to follow a gestational diet she will check her blood sugars periodically and call if they are consistently elevated. DC metformin at this time. Problem List Completed Was Problem List Reviewed/Reconciled?: Yes Summary/Hosp Course Brief History: Patient presents for scheduled induction of labor. Indication: A2GDM (metformin). No regular/painful ctx. No LOF. No vaginal bleeding. Normal movement. See history and physical for further details. Hospital course: The patient was admitted by Dr. Flores on 02/17/25. She was induced. She underwent an uncomplicated vaginal delivery 02/18/2025 at approximately 5 in the morning. See delivery note for further details. Her course was uncomplicated. Her predelivery hemoglobin was 10.4, her postdelivery hemoglobin is 10.7. The patient's pain was controlled, she denied heavy bleeding, and her vital signs were stable. She was afebrile. She was discharged home day #1 in stable condition. Peripartum Data Delivery Method: Normal Vaginal Delivery Episiotomy Description: None Laceration Description: see Delivery Summary complications: none Status at Discharge Cognitive/behavioral status at discharge: Patient is alert and oriented x 3 in no apparent distress Functional status at discharge: independent ambulation Overall status at discharge: patient is progressing back to baseline Time Spent with Patient Time attestation: Total time spent providing and/or coordinating discharge services: Time spent: Less than 30 minutes Specific discharge activities: Pelvic rest x 6 weeks Exam Vital Signs Temp Pulse Resp BP Pulse Ox O2 Del Method 97.6 F 69 18 96/62 97 Room Air 02/19/25 03:55 02/19/25 03:55 02/19/25 03:55 02/19/25 03:55 02/19/25 03:55 02/19/25 03:55 Narrative Exam Fundus is firm at umbilicus. Extremities show no significant edema or erythema. Discharge Plan Plan Patient Disposition: HOME (Self Care) Disposition Comment: Stable Patient condition on transfer: Stable Prescriptions/Referrals Prescriptions/Med Rec: New acetaminophen 325 mg Tablet 650 mg PO Q4H PRN (Reason: See Comments) 10 Days Qty: 30 0RF docusate sodium 100 mg Capsule 100 mg PO BID 10 Days Qty: 20 0RF Continued Vitamin * 1 EACH tablet 1 tab PO QDAY Qty: 0 Discontinued (DME) blood-glucose meter Kit See Rx Instructions .ROUTE .MEDSUPPLY Qty: 1 0RF Rx Instructions: As directed (DME) Blood Glucose Test Strip See Rx Instructions .ROUTE .MEDSUPPLY Qty: 10 0RF Rx Instructions: As directed (DME) lancets Misc See Rx Instructions .ROUTE .MEDSUPPLY Qty: 100 0RF Rx Instructions: As directed metformin 500 mg tablet 500 mg PO BID 30 Days Qty: 60 3RF Referrals: No Primary/Family,Physician [Primary Care Provider] - Patient/Caregiver Discharge Instructions Discharge Activity: activity as tolerated and other Other Discharge Activity Instructions:: vaginal rest and no heavy lifting more than 10 pounds for 6 weeks Other Discharge Diet Instructions: carbohydrate consistent diet Education Materials: After a Vaginal Print Language: Martiniquais Activity Restrictions/Additional Instructions: follow up with Dr. Alonzo in 2 to 4 weeks, call clinic to schedule visit Stand Alone Forms: Aniya Award Info., Patient Portal Info Letter Discharge Order Discharge Orders: Discharge (Routine); Ordered 02/19/25 Ordered By: Caterina Hernandez ([facility]) Planned Discharge Date 02/19/25 (2) Gestational diabetes Qualifiers: Gestational diabetes mellitus control: oral hypoglycemic-controlled Trimester: third trimester Qualified Code(s): O24.415 - Gestational diabetes mellitus in , controlled by oral hypoglycemic drugs
== END 2025-02-19 11:35 | disposition home or self-care (01) | DRG 560 ==
LOC: S4SX 02-18 06:05 → S4NX 02-18 08:17
PROVIDERS: Admitting Provider Obstetrics & Gynecology; Visit Provider Obstetrics & Gynecology
DX: O24.425 Gestational diabetes mellitus in childbirth, controlled by oral hypoglycemic drugs (principal); Z3A.39 39 weeks gestation of pregnancy; Z37.0 Single live birth; O99.824 Streptococcus B carrier state complicating childbirth; O99.02 Anemia complicating childbirth; O70.1 Second degree perineal laceration during delivery
CPT/HCPCS: 36415; 59409; 76815; 80307; 85025; 86703; 86762; 86780; 86850; 86900; 86901; 87340; 87491; 87591; 87661; 94762; J0290; J2210; J2590; J3010; J3490; J7120; A9270